=== PATIENT | female | born 1980 | race Caucasian/White ===

== ENCOUNTER → 2018-04-03 16:37 | Outpatient (REF) | payer MEDICAID, SELFPAY ==
--- NOTE | 2018-04-03 14:45 | PAPFT_PTH ---
PATIENT: Chary Merino LOC: [facility]#:[id number] AGE/SX: 44/F ROOM: RE04/03/[address]: Catherine Orozco V : 1980 BED: DIS: SPEC #: [id number] RECD: 04/06/18 12:49 STATUS: LESIA REQ #: [id number] CATHERINE: 04/03/18 14:[address]: Catherine Orozco V DEPT: ON LICENSE OF [facility] Cytology RECD BY: Joana Elizondo Tissues: 1 - CX/ENDOCX FOR PAP SMEARS Procedures: PAP THIN PREP/UVM Screening HPV DNA PROBE Comments: [id number]
== END ==
LOC: NCHCN 16:37
PROVIDERS: PCP Family Medicine; Visit Provider Family Medicine
DX: Z12.4 Encounter for screening for malignant neoplasm of cervix (principal); Z11.51 Encounter for screening for human papillomavirus (HPV)
CPT/HCPCS: 88142; 87624

== ENCOUNTER 2018-04-16 03:55 | Outpatient (CLI) | payer MEDICAID, SELFPAY | END 2018-04-16 04:15 | PROVIDERS: PCP Family Medicine; Visit Provider Family Medicine | DX: R00.2 Palpitations (principal) ==

== ENCOUNTER 2018-05-20 02:13 | Outpatient (CLI) | payer MEDICAID, SELFPAY ==
--- NOTE | 2018-06-29 15:44 | CER_ITS ---
DATE OF DICTATION: June 29, 2018 Zahroof Valves MONITOR REPORT MONITOR IN PLACE: May 20 - June 18, 2018 Baseline rhythm sinus. No atrial fibrillation. Rare ventricular ectopy, less than 1%. Nineteen stable events recorded. These correspond to symptomatic episodes (shortness of breath, ches t pain or pressure, flutter or skipped beats). All events occurred during sinus rhythm 98-154 bpm. Average heart rate 110 bpm. KEN/no D/
== END 2018-05-20 02:33 ==
PROVIDERS: PCP Family Medicine; Visit Provider Family Medicine
DX: R00.2 Palpitations (principal)
CPT/HCPCS: 93270

== ENCOUNTER 2018-06-08 14:57 | Outpatient (REF) | payer MEDICAID, SELFPAY ==
--- NOTE | 2018-06-08 14:25 | ENDO_PTH ---
PATIENT: Chary Merino LOC: [facility] U#:[id number] AGE/SX: 37/F ROOM: RE06/08/[address]: Mickey Verduzco MD : 1980 BED: DIS: 06/08/2018 SPEC #: [id number] RECD: 06/08/18 17:31 STATUS: LESIA RERomario #: [id number] CATHERINE: 06/08/18 14:[address]: Mickey Verduzco DEPT: Surgical Specimen RECD BY: Joana Elizondo ENTERED: 06/08/18 17:32 SP TYPE: Endo OTHR DR: Catherine Orozco V Tissues: 1 - ENDOCERVICAL BX/CURRETTE Procedures: GROSS AND MICRO LEVEL 4 Comments: [id number]
== END 2018-06-08 15:17 ==
LOC: LBN 14:57
PROVIDERS: PCP Family Medicine; Visit Provider Obstetrics & Gynecology
DX: D06.0 Carcinoma in situ of endocervix (principal); N87.1 Moderate cervical dysplasia; R87.611 Atypical squamous cells cannot exclude high grade squamous intraepithelial lesion on cytologic smear of cervix (ASC-H); R87.810 Cervical high risk human papillomavirus (HPV) DNA test positive
CPT/HCPCS: 88305

== ENCOUNTER 2019-04-26 11:40 | Outpatient (CLI) | payer MEDICAID, SELFPAY ==
[2019-04-26 12:09] LABS: HCT 41.4 % (36.0-46.0); Mean Corp. HGB Concentration 33.8 g/dL (32.0-36.0); Mean Corpuscular Hemoglobin 33.5 pg (27.0-33.0); Mean Platelet Volume 8.6 fL (8.0-11.0); Platelet Count 306 x1000/uL (130-400); RBC 4.18 m/cumm (4.00-5.20); RBC Distribution Width 14.5 % (11.7-14.6); White Blood Cell Count 7.27 k/cumm (4.4-10.8)
[2019-04-26 12:50] LABS: ALT 92 U/L (14-59); AST 111 U/L (15-37); Albumin 3.5 g/dL (3.4-5.0); Alkaline Phosphatase 128 U/L (46-116); Anion Gap 13.4 mmol/L (3-11); BUN 5 mg/dL (7-18); Bilirubin, Total 0.3 mg/dL (0.2-1.0); CO2 23.6 mmol/L (21.0-32.0); CREATININE 0.63 mg/dL (0.55-1.02); Calcium 8.5 mg/dL (8.5-10.1); Chloride 103 mmol/L (98-107); Glucose 138 mg/dL (70-100); Potassium 3.6 mmol/L (3.5-5.1); Sodium 140 mmol/L (136-145); Total Protein 7.5 g/dL (6.4-8.2)
== END 2019-04-26 12:00 ==
PROVIDERS: PCP Family Medicine; Visit Provider Obstetrics & Gynecology Gynecology
DX: B19.20 Unspecified viral hepatitis C without hepatic coma (principal)
CPT/HCPCS: 36415; 80053; 85027

== ENCOUNTER 2019-06-16 12:56 | Outpatient (CLI) | payer MEDICAID, SELFPAY | END 2019-06-16 13:16 | PROVIDERS: PCP Family Medicine; Visit Provider Obstetrics & Gynecology Gynecology | DX: Z01.818 Encounter for other preprocedural examination (principal) ==

== ENCOUNTER 2021-09-20 18:07 | Outpatient (REF) | payer MEDICAID, SELFPAY ==
[2021-09-24 14:51] LABS: Chlamydia Result Negative (Negative); GC Result Negative (Negative)
== END 2021-09-20 18:08 | disposition home or self-care (01) ==
LOC: LBN 18:07
PROVIDERS: PCP Family Medicine; Visit Provider Physician Assistant Medical
DX: N89.8 Other specified noninflammatory disorders of vagina (principal)
CPT/HCPCS: 87491; 87591; 87480; 87510; 87660

== ENCOUNTER 2022-09-18 21:42 | Inpatient (IN) | payer MEDICAID, SELFPAY ==
[2022-09-18 21:59] VITALS: BP 164/107; PULSE 81; RESP 16; TEMP 36.4; O2SAT 99
--- NOTE | 2022-09-18 22:00 | DI.CT_ITS ---
Exam(s) CT ABDOMEN PELVIS W EXAM: CT ABDOMEN PELVIS W CLINICAL HISTORY: Incarcerated ventral hernia, pain. TECHNIQUE: Imaging Protocol: Axial computed tomography images with coronal and sagittal reformatted images were created and reviewed CONTRAST MATERIAL: Intravenous: Omnipaque-350 100cc Oral: None COMPARISON: No exams were available for comparison FINDINGS: VISUALIZED LUNG BASES: No nodules nor pleural effusions evident. ABDOMEN: There is a high-grade small bowel obstruction here with small bowel loops dilated to 4.2 cm. Transit ion point is within an anterior abdominal wall midline umbilical hernia which contains entrapped cinthya l loops as well as surrounding fluid. There is small amount of ascites.. There is no free air. LIVER: There are no focal hepatic lesions evident. No dilated intrahepatic ducts. GALLBLADDER/BILIARY: Gallbladder surgically absent. CBD is not dilated. PANCREAS: No evidence of pancreatic mass nor dilatation of the pancreatic duct. SPLEEN: Spleen is not enlarged. No obvious intrasplenic lesions. Splenic and portal veins are paten t. ADRENALS: There are no significant adrenal masses. KIDNEYS:No cysts evident. No solid renal masses. No calculi nor hydronephrosis.. ABDOMINAL AORTA: Abdominal aorta is not enlarged. LYMPH NODES:There is no retroperitoneal nor paraaortic adenopathy. ABDOMINAL WALL: As above. GI: High-grade small-bowel obstruction, as above PELVIS: GI: No evidence of appendicitis.No evidence of sigmoid diverticulitis. LYMPH NODES: There is no intrapelvic nor inguinal adenopathy. REPRODUCTIVE: Uterus and adnexal regions appear unremarkable. URINARY BLADDER: Compressed by dilated bowel loops. Otherwise without obvious abnormality. OSSEOUS: No fractures and no significant osseous lesions. IMPRESSION: 1. There is a high-grade small bowel obstruction which is due to an anterior abdominal wall umbilical level hernia with entrapped small bowel therein and surrounding fluid. There is a small amount of a scites. Surgical consultation recommended. 2. Gallbladder surgically absent. The biliary tree is not dilated. First read by [facility]. RADIATION DOSE DELIVERED: 836.55mGy.cm Total DLP DATA REPOSITORY: All CT scans at this facility are submitted to the National Radiology Data Registry (NRDR) Dose Index Registry (DIR) with the [employer] (A[employer]). RADIATION OPTIMIZATION: All CT scans at this facility use at least one of these dose optimization te chniques: automated exposure control; mA and/or kV adjustment per patient size (includes targeted exa ms where dose is matched to clinical indication); or iterative reconstruction.
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
[2022-09-18 22:30] LABS: Lactate 0.9 mmol/L (0.6-1.4)
[2022-09-18 22:31] LABS: Abs Immature Grans 0.05 10^3/uL (0.0-0.06); Absolute Basophil Count 0.07 10^3/uL (0.0-0.2); Absolute Eosinophil Count 0.08 10^3/uL (0.0-0.7); Absolute Lymphocyte Count 2.32 10^3/uL (1.2-3.4); Absolute Monocyte Count 0.88 10^3/uL (0.1-0.8); Absolute Neutrophil Count 13.19 10^3/uL (1.2-6.7); Basophils % 0.4; Eosinophils % 0.5; HCT 53.8 % (36.0-46.0); HGB 18.2 g/dL (11.2-15.7); Immature Grans % 0.3; MCH 31.5 pg (27.0-33.0); MCHC 33.8 % (32.0-36.0); MCV 93 fL (80-95); MPV 8.3 fL (8.0-11.0); Monocytes % 5.3; Neutrophils % 79.5; Platelet Count 371 10^3/uL (130-400); RBC 5.78 10^6/uL (3.93-5.22); RDW 12.2 % (11.7-14.6); RDW-SD 42.1 fL; WBC 16.59 10^3/uL (4.4-10.8)
[2022-09-18 22:42] LABS: Source Nasal/Nares
[2022-09-18 22:45] LABS: Bilirubin Moderate (Negative); Blood Negative (Negative); Clarity Sl Cloudy (Clear); Glucose 100 mg/dL (Negative); Ketones 40 mg/dL (Negative); Leukocyte Esterase Negative (Negative); Nitrite Negative (Negative)
[2022-09-18 22:51] LABS: Bacteria Negative HPF (Negative); C & S Indicated? No; Casts Negative LPF (Negative); Crystals Negative HPF (Negative); Epithelial Cells Few HPF (Negative); Mucus Negative (Negative); Other Cells Negative (Negative); RBC 0-2 HPF (0-2); WBC 0-2 HPF (0-5)
[2022-09-18 22:52] LABS: ALT 32 U/L (14-59); AST 23 U/L (15-37); Albumin 4.3 g/dL (3.4-5.0); Alkaline Phosphatase 105 U/L (46-116); Anion Gap 9.4 mmol/L (3-11); BUN 6 mg/dL (7-18); Bilirubin, Total 0.6 mg/dL (0.2-1.0); CO2 29.6 mmol/L (21.0-32.0); CREATININE 0.8 mg/dL (0.55-1.02); Calcium 9.9 mg/dL (8.5-10.1); Chloride 100 mmol/L (98-107); Estimated GFR 95.46 (mL/min/1.73m2); Glucose 110 mg/dL (74-106); Lipase 31 U/L (16-77); Potassium 3.4 mmol/L (3.5-5.1); Sodium 139 mmol/L (136-145); Total Protein 8.8 g/dL (6.4-8.2)
[2022-09-18 22:54] LABS: ETHANOL BLOOD < 3.0 mg/dL (<10)
[2022-09-18 22:57] LABS: *AMPHETAMINES SCREEN URINE Negative (Negative); *BARBITURATES SCREEN URINE Negative (Negative); *BENZODIAZEPINES SCREEN URINE Negative (Negative); Cannabinoids THC Positive (Negative); Cocaine Screen,Urine Positive (Negative); METHADONE URINE SCREEN Positive (Negative); OPIATES URINE SCREEN Negative (Negative)
[2022-09-18 22:58] LABS: Tricyclic Antidepressants Negative (Negative)
[2022-09-18] MEDS: Normal Saline 1,000 ML 1000 ML IV (22:59)
[2022-09-18] MEDS: Normal Saline Flush 10 ML SYR IVP (23:12)
[2022-09-18] MEDS: Normal Saline - Diluent 50 ML VIAL IJ (23:15)
[2022-09-18] MEDS: Omnipaque 350 MG/ML 100 ML BTL IJ (23:15)
[2022-09-18 23:16] LABS: COVID-19 PCR Negative (Negative)
--- NOTE | 2022-09-18 23:36 | DI.VRAD_ITS ---
Addendum created by Eduin Maddox MD on 09/18/2022 11:39:13 PM EST: THIS REPORT CONTAINS FINDINGS THAT MAY BE CRITICAL TO PATIENT CARE. The findings were verbally communicated via telephone conference with Jose DAWN at 11:38 PM EST on 09/18/2022. The findings were acknowledged and understood. Initial report created on 09/18/2022 11:35:42 PM EST: PROCEDURE INFORMATION: Exam: CT Abdomen And Pelvis With Contrast Exam date and time: 09/18/2022 11:03 PM Age: 41 years old Clinical indication: Other: Incarcerated ventral hernia pain TECHNIQUE: Imaging protocol: Computed tomography of the abdomen and pelvis with contrast. Radiation optimization: All CT scans at this facility use at least one of these dose optimization techniques: automated exposure control; mA and/or kV adjustment per patient size (includes targeted exams where dose is matched to clinical indication); or iterative reconstruction. Contrast material: OMNIPAQUE 350; Contrast volume: 100 ml; Contrast route: INTRAVENOUS (IV); COMPARISON: US ABDOMEN ULTRASOUND (P) 01/22/2017 2:57 PM FINDINGS: Ventral hernia containing small bowel/fluid with relative narrowing of the exiting bowel. There is proximal small bowel dilatation and gastric/duodenal distention. Prior cholecystectomy. Suspected cirrhosis. The spleen, adrenal glands, kidneys and pancreas are unremarkable. No free air. Minimal pelvic fluid noted. The bladder is decompressed No concerning osseous or soft tissue abnormality No aortic aneurysm or retroperitoneal adenopathy IMPRESSION: High-grade small bowel obstruction secondary to incarcerated small bowel containing hernia Dictated and Authenticated by: Eduin Maddox MD. Ordering:TANA Gutierrez MD
--- NOTE | 2022-09-18 23:41 | ED.PROG_ITS ---
Date of service: 09/18/22 Time of Service: 23:00 Medical Decision Making 2299 -- Please see BETTE Dodd's note for initial presentation, exam and plan. Case endorsed to f/u on CT with likely diagnosis of incarcerated hernia. Pt assessed by me at bedside. 41 year old F w/ a h/o opiate use in remission on methadone and h/o cholecystectomy presents for vomiting and abdominal pain for the past few days. Last BM today. Pt has a tender indurated mass to the right of her umbilicus, 7x7cm in size without cellulitis. Remainder of abdomen soft. She appears uncomfortable. She last took a dose of methadone yesterday and has not had her dose today. As we cannot confirm that she is taking 120mg at this time, will give a dose of dilaudid IV for pain control. Vrad called to state pt has SBO and umbilical hernia. Case d/w and imaging reviewed with Dr. Murillo -- pt has an incarcerated hernia. Would like NG tube, 2g Ancef IV and will call in OR team. Pt is agreeable with plan. 0030 -- Multiple attempts made by nursing staff to place NG tube in ED but unsuccessful. It was noted that pt had resistance when attempting to place NGT and had epistaxis and discomfort and declined any further attempts. Dr. Murillo made aware. Medical Records Medical records reviewed: Yes I reviewed the patient's medical records. Imaging Data Radiologic Study: Radiologist's impression: CT Abdomen And Pelvis With Contrast Exam date and time: 09/18/2022 11:03 PM Age: 41 years old Clinical indication: Other: Incarcerated ventral hernia pain TECHNIQUE: Imaging protocol: Computed tomography of the abdomen and pelvis with contrast. Radiation optimization: All CT scans at this facility use at least one of these dose optimization techniques: automated exposure control; mA and/or kV adjustment per patient size (includes targeted exams where dose is matched to clinical indication); or iterative reconstruction. Contrast material: OMNIPAQUE 350; Contrast volume: 100 ml; Contrast route: INTRAVENOUS (IV);? COMPARISON: US ABDOMEN ULTRASOUND (P) 01/22/2017 2:57 PM FINDINGS: Ventral hernia containing small bowel/fluid with relative narrowing of the exiting bowel. There is proximal small bowel dilatation and gastric/duodenal distention. Prior cholecystectomy.? Suspected cirrhosis. The spleen, adrenal glands, kidneys and pancreas are unremarkable. No free air. Minimal pelvic fluid noted. The bladder is decompressed No concerning osseous or soft tissue abnormality No aortic aneurysm or retroperitoneal adenopathy IMPRESSION: High-grade small bowel obstruction secondary to incarcerated small bowel containing hernia Lab Data Lab results reviewed: Yes I reviewed the patient's lab results. Labs: Laboratory Tests Range/Units 09/18/22 09/18/22 09/18/22 22:23 22:23 22:23 WBC (4.4-10.8) 10^3/uL 16.59 H RBC (3.93-5.22) 10^6/uL 5.78 H Hgb (11.2-15.7) g/dL 18.2 H Hct (36.0-46.0) % 53.8 H MCV (80-95) fL 93 MCH (27.0-33.0) pg 31.5 MCHC (32.0-36.0) % 33.8 RDW (11.7-14.6) % 12.2 Plt Count (130-400) 10^3/uL 371 MPV (8.0-11.0) fL 8.3 Immature Gran % 0.3 Neutrophils % 79.5 Lymphocytes % 14.0 Monocytes % 5.3 Eosinophils % 0.5 Basophils % 0.4 Nucleated RBC % (0.0-0.3) % 0.0 Absolute Neutrophils (1.2-6.7) 10^3/uL 13.19 H Absolute Lymphocytes (1.2-3.4) 10^3/uL 2.32 Absolute Monocytes (0.1-0.8) 10^3/uL 0.88 H Absolute Eosinophils (0.0-0.7) 10^3/uL 0.08 Absolute Basophils (0.0-0.2) 10^3/uL 0.07 VBG Lactate (0.6-1.4) mmol/L 0.9 Sodium (136-145) mmol/L 139 Potassium (3.5-5.1) mmol/L 3.4 L Chloride (98-107) mmol/L 100 Carbon Dioxide (21.0-32.0) mmol/L 29.6 Anion Gap (3-11) mmol/L 9.4 BUN (7-18) mg/dL 6 L Creatinine (0.55-1.02) mg/dL 0.8 Est GFR (CKD-EPI 2020) (mL/min/1.73m2) 95.46 Glucose (74-106) mg/dL 110 H Calcium (8.5-10.1) mg/dL 9.9 Total Bilirubin (0.2-1.0) mg/dL 0.6 AST (15-37) U/L 23 ALT (14-59) U/L 32 Alkaline Phosphatase (46-116) U/L 105 Total Protein (6.4-8.2) g/dL 8.8 H Albumin (3.4-5.0) g/dL 4.3 Lipase (16-77) U/L 31 Urine Color (Yellow) Urine Clarity (Clear) Urine pH (5-8) Ur Specific Leeper (1.005-1.025) Urine Protein (Negative) mg/dL Urine Ketones (Negative) mg/dL Urine Blood (Negative) Urine Nitrite (Negative) Urine Bilirubin (Negative) Urine Urobilinogen (Up TO 0.2) EU/dL Ur Leukocyte Esterase (Negative) Urine RBC (0-2) HPF Urine WBC (0-5) HPF Ur Epithelial Cells (Negative) HPF Urine Crystals (Negative) HPF Urine Bacteria (Negative) HPF Urine Casts (Negative) LPF Urine Mucus (Negative) Urine Other (Negative) Ur Culture Indicated? Urine Glucose (Negative) mg/dL Urine Opiates Screen (Negative) Urine Methadone Screen (Negative) Ur Barbiturates Screen (Negative) Ur Tricyclics Screen (Negative) Ur Amphetamines Screen (Negative) U Benzodiazepines Scrn (Negative) Urine Cocaine Screen (Negative) Ur THC Screen (Negative) Ethyl Alcohol (<10) mg/dL COVID-19 Source SARS-CoV-2 (PCR) (Negative) Range/Units 09/18/22 09/18/22 09/18/22 22:23 22:30 22:30 WBC (4.4-10.8) 10^3/uL RBC (3.93-5.22) 10^6/uL Hgb (11.2-15.7) g/dL Hct (36.0-46.0) % MCV (80-95) fL MCH (27.0-33.0) pg MCHC (32.0-36.0) % RDW (11.7-14.6) % Plt Count (130-400) 10^3/uL MPV (8.0-11.0) fL Immature Gran % Neutrophils % Lymphocytes % Monocytes % Eosinophils % Basophils % Nucleated RBC % (0.0-0.3) % Absolute Neutrophils (1.2-6.7) 10^3/uL Absolute Lymphocytes (1.2-3.4) 10^3/uL Absolute Monocytes (0.1-0.8) 10^3/uL Absolute Eosinophils (0.0-0.7) 10^3/uL Absolute Basophils (0.0-0.2) 10^3/uL VBG Lactate (0.6-1.4) mmol/L Sodium (136-145) mmol/L Potassium (3.5-5.1) mmol/L Chloride (98-107) mmol/L Carbon Dioxide (21.0-32.0) mmol/L Anion Gap (3-11) mmol/L BUN (7-18) mg/dL Creatinine (0.55-1.02) mg/dL Est GFR (CKD-EPI 2020) (mL/min/1.73m2) Glucose (74-106) mg/dL Calcium (8.5-10.1) mg/dL Total Bilirubin (0.2-1.0) mg/dL AST (15-37) U/L ALT (14-59) U/L Alkaline Phosphatase (46-116) U/L Total Protein (6.4-8.2) g/dL Albumin (3.4-5.0) g/dL Lipase (16-77) U/L Urine Color (Yellow) Yellow Urine Clarity (Clear) Sl Cloudy Urine pH (5-8) 6.0 Ur Specific Leeper (1.005-1.025) 1.020 Urine Protein (Negative) mg/dL 30 H Urine Ketones (Negative) mg/dL 40 H Urine Blood (Negative) Negative Urine Nitrite (Negative) Negative Urine Bilirubin (Negative) Moderate H Urine Urobilinogen (Up TO 0.2) EU/dL 1.0 H Ur Leukocyte Esterase (Negative) Negative Urine RBC (0-2) HPF 0-2 Urine WBC (0-5) HPF 0-2 Ur Epithelial Cells (Negative) HPF Few Urine Crystals (Negative) HPF Negative Urine Bacteria (Negative) HPF Negative Urine Casts (Negative) LPF Negative Urine Mucus (Negative) Negative Urine Other (Negative) Negative Ur Culture Indicated? No Urine Glucose (Negative) mg/dL 100 Urine Opiates Screen (Negative) Urine Methadone Screen (Negative) Ur Barbiturates Screen (Negative) Ur Tricyclics Screen (Negative) Ur Amphetamines Screen (Negative) U Benzodiazepines Scrn (Negative) Urine Cocaine Screen (Negative) Ur THC Screen (Negative) Ethyl Alcohol (<10) mg/dL < 3.0 COVID-19 Source Nasal/Nares SARS-CoV-2 (PCR) (Negative) Negative Range/Units 09/18/22 22:30 WBC (4.4-10.8) 10^3/uL RBC (3.93-5.22) 10^6/uL Hgb (11.2-15.7) g/dL Hct (36.0-46.0) % MCV (80-95) fL MCH (27.0-33.0) pg MCHC (32.0-36.0) % RDW (11.7-14.6) % Plt Count (130-400) 10^3/uL MPV (8.0-11.0) fL Immature Gran % Neutrophils % Lymphocytes % Monocytes % Eosinophils % Basophils % Nucleated RBC % (0.0-0.3) % Absolute Neutrophils (1.2-6.7) 10^3/uL Absolute Lymphocytes (1.2-3.4) 10^3/uL Absolute Monocytes (0.1-0.8) 10^3/uL Absolute Eosinophils (0.0-0.7) 10^3/uL Absolute Basophils (0.0-0.2) 10^3/uL VBG Lactate (0.6-1.4) mmol/L Sodium (136-145) mmol/L Potassium (3.5-5.1) mmol/L Chloride (98-107) mmol/L Carbon Dioxide (21.0-32.0) mmol/L Anion Gap (3-11) mmol/L BUN (7-18) mg/dL Creatinine (0.55-1.02) mg/dL Est GFR (CKD-EPI 2020) (mL/min/1.73m2) Glucose (74-106) mg/dL Calcium (8.5-10.1) mg/dL Total Bilirubin (0.2-1.0) mg/dL AST (15-37) U/L ALT (14-59) U/L Alkaline Phosphatase (46-116) U/L Total Protein (6.4-8.2) g/dL Albumin (3.4-5.0) g/dL Lipase (16-77) U/L Urine Color (Yellow) Urine Clarity (Clear) Urine pH (5-8) Ur Specific Leeper (1.005-1.025) Urine Protein (Negative) mg/dL Urine Ketones (Negative) mg/dL Urine Blood (Negative) Urine Nitrite (Negative) Urine Bilirubin (Negative) Urine Urobilinogen (Up TO 0.2) EU/dL Ur Leukocyte Esterase (Negative) Urine RBC (0-2) HPF Urine WBC (0-5) HPF Ur Epithelial Cells (Negative) HPF Urine Crystals (Negative) HPF Urine Bacteria (Negative) HPF Urine Casts (Negative) LPF Urine Mucus (Negative) Urine Other (Negative) Ur Culture Indicated? Urine Glucose (Negative) mg/dL Urine Opiates Screen (Negative) Negative Urine Methadone Screen (Negative) Positive A Ur Barbiturates Screen (Negative) Negative Ur Tricyclics Screen (Negative) Negative Ur Amphetamines Screen (Negative) Negative U Benzodiazepines Scrn (Negative) Negative Urine Cocaine Screen (Negative) Positive A Ur THC Screen (Negative) Positive A Ethyl Alcohol (<10) mg/dL COVID-19 Source SARS-CoV-2 (PCR) (Negative) Sign Out Sign Out Data: Sign Out Comment: Examination consistent with incarcerated hernia. Patient with leukocytosis although her lactate is normal. Awaiting CT imaging and likely need for surgical consultation. Currently lying in Trendelenburg with ice pack on hernia. Last updated by Matt Dodd PA at 09/18/22 23:08 Discharge Plan Disposition Patient Disposition: Admit to [facility] Condition: Stable Discharge Details Clinical Impression: Incarcerated umbilical hernia, Small bowel obstruction Attending Provider: Matthew Murillo Primary Care Provider: Catherine Orozco V ED Provider: Aixa Garcia
[2022-09-19] VITALS (17 sets, daily range): BP systolic 117–156; BP diastolic 67–108; PULSE 60–97; RESP 14–19; TEMP 36.6–37.2; O2SAT 95–100; BMI 30.9
[2022-09-19] MEDS: HYDROmorphone 2 MG/ML SYR 1 MG IVP (00:18)
[2022-09-19] MEDS: ceFAZolin 2,000 MG in Normal Saline 100 ML 200 MG IVPB (00:21)
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
--- NOTE | 2022-09-19 00:46 | NUR.NOTE ---
Addendum entered by Uzair Martinez RN 09/19/22 01:14: Pt transported to OR with OR nurse. Addendum entered by Uzair Martinez RN 09/19/22 00:49: Surgeon at bedside to speak with pt. Original Note: Nursing Note: NG tube placement unsuccessful, 3 failed attemps, ER attending and surgeon aware.
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
[2022-09-19] MEDS: Lactated Ringers 1,000 ML 30 ML IV (01:09)
[2022-09-19] MEDS: Bupivacaine 0.5% Pres-Free W/EPI 30 ML VIAL (02:29)
[2022-09-19] MEDS: Bupivacaine LIPOSOME/PF 133 MG/10 ML VIAL IJ (02:29)
--- NOTE | 2022-09-19 02:50 | W.PM.OP ---
Date of service: 09/19/22 Time of Service: 02:51 Operative Note Operative Note DATE OF PROCEDURE: 09/19/22 PRE-OP DIAGNOSIS: Incarcerated incisional hernia with small bowel obstruction POST-OP DIAGNOSIS: same PROCEDURE: Exploratory laparotomy, reduction of hernia, repair of incisional hernia with recto rectus mesh SURGEON: Matthew Murillo SEAL DELIVERY VEHICLE OFFICER: Anastasia Dempsey ANESTHESIA TYPE: Local By Surgeon and General LMA/ETT Refer to Anesthesia Record ESTIMATED BLOOD LOSS: 50 PATHOLOGY: none sent COMPLICATIONS: None Patient was transported to: PACU Patient's condition: stable Implants: Bard polypropylene mesh Indications: Chary is a 41-year-old woman with a painful bulge adjacent to her umbilicus. She underwent CAT scan of the abdomen and pelvis to confirm the diagnosis of a hernia involving small bowel. Multiple attempts were made in the emergency department to reduce it, as well unsuccessful. Findings: Likely incisional hernia at the umbilicus, with incarcerated small bowel and acute small bowel obstruction. Procedure Description: After the induction of general endotracheal anesthesia, I prepped and draped the anterior abdominal wall in usual fashion. I made a longitudinal incision around the area of the umbilicus extending above and below the level of the hernia defect. Next, I dissected down to the midline fascia. I then dissected the surrounding fat off of the hernia sac, isolating it from the surrounding tissues. Next, several centimeters above the hernia, I incised the midline fascia. I entered the peritoneal cavity, and continued my dissection down towards the origin of the hernia defect. With careful dissection, I isolated the fascial defect, and opened it. There was some serous fluid within the hernia sac, as well as a loop of small intestine. I gently liberated it. The bowel wall was mildly thickened, but it had good blood flow, and there was normal peristalsis across the neck of the incarcerated small bowel. Next, I continued my dissection downward back into normal fascia. Once this was completed, I completely excised the hernia sac. I then opened the right and left rectus sheaths, and dissected the right left rectus muscles off of the posterior fascial elements. Great care was taken to preserve the oncology consultant vessels. Once the rectus muscles were mobilized, I examined the herniated small bowel again. The tissue is healthy appearing. The small intestine back into the peritoneal cavity, and took great care to ensure that everything was arranged in a normal anatomic fashion. Next, I closed the posterior fascial sheath with a running 2-0 PDS suture. Next, I trimmed a large polypropylene mesh to overlay on the primary posterior vaginal closure. I fixed it in place with interrupted Prolene stitches. I then replaced the rectus muscles to the normal position, and then closed the anterior rectus sheath over this. I then irrigated the surgical field. It was hemostatic. I approximated the subcutaneous fat with interrupted Vicryl stitches, and the skin was closed with surgical stapler. A curtis negative pressure dressing was applied, and the patient was allowed awaken from anesthesia and transferred to the recovery unit.
[2022-09-19] MEDS: fentaNYL 100 MCG/2 ML VIAL IVP ×2 (03:07→03:11)
--- NOTE | 2022-09-19 03:30 | W.ANESPOSTOP ---
Postoperative Evaluation Date, Time and Location Date Performed: 09/19/22 Time Performed: 03:31 Patient Location: PACU Vital Signs Most Recent Imported Vital Signs: Most Recent Vital Signs Temp Pulse Resp BP Pulse Ox 37.2 C 69 18 150/89 H 96 09/19/22 03:26 09/19/22 03:26 09/19/22 03:26 09/19/22 03:26 09/19/22 03:26 Pain Score Most Recent Pain Score: Most Recent Pain Score Pain Level 4 09/19/22 03:26 Assessment Mental Status: Awake (Alert & Oriented to Patient Baseline) Airway and Respiratory Function: Patent airway with normal (patient baseline) respiratory exam Cardiovascular Function: Hemodynamically Stable Hydration Status: Adequately Hydrated Nausea & Vomiting: No Nausea or Vomiting Pain: Pain is Moderate or Severe Postoperative Pain Management: Ongoing pain, patient will be managed as an inpatient Peripheral Nerve Block: Patient did not receive a nerve block
[2022-09-19] MEDS: HYDROmorphone 2 MG/ML SYR IVP (04:00)
[2022-09-19] MEDS: Ketorolac 30 MG/ML VIAL IVP ×2 (04:01→13:05)
[2022-09-19] MEDS: Lactated Ringers 1,000 ML 75 ML IV (04:01)
[2022-09-19] MEDS: Acetaminophen 500 MG TAB 1000 MG PO ×2 (06:09→13:04)
[2022-09-19 07:01] LABS: HCT 45.1 % (36.0-46.0); HGB 15.3 g/dL (11.2-15.7); MCH 31.8 pg (27.0-33.0); MCHC 33.9 % (32.0-36.0); MCV 94 fL (80-95); MPV 8.7 fL (8.0-11.0); Platelet Count 284 10^3/uL (130-400); RBC 4.81 10^6/uL (3.93-5.22); RDW 12.2 % (11.7-14.6); RDW-SD 42.6 fL; WBC 14.39 10^3/uL (4.4-10.8)
[2022-09-19] MEDS: Methadone Liquid 10 MG/ML 120 MG PO (07:52)
[2022-09-19] MEDS: Enoxaparin 40 MG/0.4 ML SYR SC (07:53)
[2022-09-19] MEDS: Psyllium PKT 1 EACH PO (08:02)
[2022-09-19] MEDS: Gabapentin 300 MG CAP PO ×2 (08:05→13:04)
[2022-09-19] MEDS: Famotidine 20 MG TAB PO (11:35)
[2022-09-19] MEDS: HYDROmorphone 2 MG/ML SYR 0.5 MG IVP ×2 (11:35→17:03)
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
--- NOTE | 2022-09-19 12:47 | W.PM.DSUDISC ---
Date of service: 09/19/22 Time of Service: 12:47 Discharge Plan Disposition Condition: Stable Condition: Good Discharge Details Reason For Visit: Incarcerated Incisional Hernia w/Small Bowel Obstr Admit Date/Time: 09/19/22 02:52 Admit Provider: Matthew Murillo Attending Provider: Matthew Murillo Primary Care Provider: Catherine Orzoco V Hospital Course Hospital Course: Chary is a 41-year-old woman who presented to the emergency department with an incarcerated umbilical port site incisional hernia. This was causing an acute small bowel obstruction. She was brought to the operating room emergently, underwent reduction of the hernia, and repair of the hernia defect with retrorectus mesh Home Meds and New Rx's Prescriptions: New hydromorphone [Dilaudid] 2 mg tablet 2 mg PO Q6H PRN (Reason: pain) Qty: 12 0RF Rx Instructions: Take 1 tablet by mouth up to every 6 hours if needed for severe pain. Do not drive while taking this medication. gabapentin 300 mg capsule 300 mg PO TID Qty: 15 0RF Rx Instructions: Take 1 tablet by mouth every 8 hours for 5 days straight. Continued methadone 10 mg tablet 120 mg PO DAILY Patient Comments: ended up throwing it up DS: Diagnosis Discharge Diagnosis (1) Incarcerated umbilical hernia: Status: Acute Asessment and Plan: Follow-up for outpatient visit
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
--- NOTE | 2022-09-19 16:50 | PDOC.CMDIS ---
- If Service Date Differs Date of service: 09/19/22 Time of Service: 16:50 LACE Index Scoring Tool - Questions: Length of Stay (in days): 1 Acuity (Admit via E.D.?): Yes E.D. Visits: 1 - Answers: Total Score: 5 Risk of Readmission: Low Risk Care Management Discharge Reason for Hospitalization: Incarcerated umbilical hernia Discharge Plan: Chary will return home today with no new services. She will be driven home via private vehicle. She will follow up with surgical services and her discharge plan of care. Patient/Family Education Needs: Review discharge instructions and limitations, discussion of self care needs including ask me three.
[2022-09-19] MEDS: Normal Saline Flush 10 ML SYR IVP (17:04)
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
== END 2022-09-19 18:42 | disposition home or self-care (01) | DRG 354 ==
LOC: ER 09-19 00:47 → SUR 09-19 01:06 → ER 09-19 03:51 → SUR 09-19 03:51 → ER 09-19 03:51 → SUR 09-19 03:51 → MS 09-19 03:53
PROVIDERS: Physician Assistant; Admitting Provider Surgery; Emergency Provider Physician Assistant; PCP Family Medicine; Visit Provider Surgery
PROC: 0WUF0JZ Supplement Abdominal Wall with Synthetic Substitute, Open Approach (ICD-10-PCS; CPT 49594; principal; 2022-09-19 00:40)
DX: K43.0 Incisional hernia with obstruction, without gangrene (principal); F11.20 Opioid dependence, uncomplicated; F43.10 Post-traumatic stress disorder, unspecified; F32.A Depression, unspecified; K21.9 Gastro-esophageal reflux disease without esophagitis; E66.9 Obesity, unspecified; Z68.30 Body mass index [BMI] 30.0-30.9, adult; B18.2 Chronic viral hepatitis C; Z91.419 Personal history of unspecified adult abuse; Z62.810 Personal history of physical and sexual abuse in childhood; F41.9 Anxiety disorder, unspecified
CPT/HCPCS: 49594; 36415; 80053; 80307; 81025; 83690; 85027; 87635; 96361; 96365; 96375; 99285; J1650; 74177; 80320; 81003; 81015; 83605; 85025; C1781; J0690; J1100; J1170; J1885; J2405; J2704; J3010; J3490

== ENCOUNTER 2022-09-28 15:14 | Emergency (ER) | payer MEDICAID, SELFPAY ==
[2022-09-28 15:19] VITALS: BP 147/96; PULSE 93; RESP 18; TEMP 36.4; O2SAT 98
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
[2022-09-28] MEDS: Bacitracin 1 PACKET (16:15)
[2022-09-28 16:18] VITALS: BP 135/90; PULSE 102; O2SAT 95
== END 2022-09-28 16:31 | disposition home or self-care (01) ==
PROVIDERS: Emergency Provider Physician Assistant; PCP Family Medicine
DX: Z48.815 Encounter for surgical aftercare following surgery on the digestive system (principal); R58 Hemorrhage, not elsewhere classified
CPT/HCPCS: 99282

== ENCOUNTER 2022-12-29 20:31 | Emergency (ER) | payer MEDICAID, SELFPAY ==
[2022-12-29 20:37] VITALS: BP 143/91; PULSE 110; RESP 18; TEMP 36.6; O2SAT 99
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
[2022-12-29] MEDS: Cephalexin 500 MG CAP, 4 CAPS/BTL PO (21:29)
== END 2022-12-29 21:57 | disposition home or self-care (01) ==
PROVIDERS: Emergency Provider Student in an Organized Health Care Education/Training Program; PCP Family Medicine
DX: S61.411A Laceration without foreign body of right hand, initial encounter (principal); W25.XXXA Contact with sharp glass, initial encounter
CPT/HCPCS: 12002; 90471; 99284; 99283

== ENCOUNTER 2023-01-29 14:21 | Outpatient (CLI) | payer MEDICAID, SELFPAY ==
--- NOTE | 2023-01-29 12:15 | DI.US_ITS ---
Exam(s) US PELVIS TRANSVAGINAL EXAM: US PELVIS TRANSVAGINAL CLINICAL HISTORY: vaginal bleeding N93.9 ABNL VAGINAL BLEEDING. TECHNIQUE: Transabdominal and transvaginal pelvic ultrasound was performed using standard protocol. COMPARISON: No exams were available for comparison FINDINGS: UTERUS: Position: Anteverted. Size: 7.5 long by 3.7 AP by 4.4 transverse cm Endometrium: 0.2 cm. Normal for patient's menstrual status. There is mobile debris seen within the en dometrial canal which may reflect blood products. Myometrium: Unremarkable. Cervix: Unremarkable. OVARIES: Right: 3.1 x 1.4 x 2 cm Cyst or mass: No suspicious cystic or solid masses. Left: 2.3 x 1.6 x 2.9 cm Cyst or mass: No suspicious cystic or solid masses. DOPPLER: Color: Symmetric and uniform flow to both ovaries. CUL-DE-SAC: Free fluid: None. Other: None. IMPRESSION: 1. Normal-appearing uterus with endometrial stripe within normal limits. 2. Debris seen within the endometrial canal likely reflecting blood products. 3. Unremarkable bilateral ovaries. DATA REPOSITORY:
== END 2023-01-29 14:41 ==
LOC: DI 14:21
PROVIDERS: PCP Family Medicine; Visit Provider Physician Assistant
DX: N93.9 Abnormal uterine and vaginal bleeding, unspecified (principal)
CPT/HCPCS: 76830; 76856

== ENCOUNTER 2023-02-27 17:39 | Outpatient (REF) | payer MEDICAID, SELFPAY ==
--- NOTE | 2023-02-27 16:30 | PAPFT_PTH ---
PATIENT: Chary Merino LOC: [facility] U#:[id number] AGE/SX: 42/F ROOM: RE02/27/[address]: Amanda Crandall MD : 1980 BED: DIS: 02/27/2023 SPEC #: [id number] RECD: 02/27/23 17:57 STATUS: LESIA RERomario #: [id number] CATHERINE: 02/27/23 16:[address]: Amanda Crandall DEPT: [facility] Cytology RECD BY: Joana Elizondo ENTERED: 02/27/23 17:57 SP TYPE: PAPFT OTHR DR: Catherine Orozco V Tissues: 1 - CX/ENDOCX FOR PAP SMEARS Procedures: PAP THIN PREP/UVM Screening HPV DNA PROBE Comments: [id number]
[2023-02-28 13:35] LABS: Chlamydia Result Negative (Negative); GC Result Negative (Negative)
== END 2023-02-27 17:40 | disposition home or self-care (01) ==
LOC: LBN 17:39
PROVIDERS: PCP Family Medicine; Visit Provider Obstetrics & Gynecology
DX: Z11.51 Encounter for screening for human papillomavirus (HPV) (principal)
CPT/HCPCS: 87491; 87591; 88142; 87624

== ENCOUNTER 2023-03-30 10:50 | Emergency (ER) | payer MEDICAID, SELFPAY ==
[2023-03-30 10:56] VITALS: BP 122/76; PULSE 87; RESP 18; TEMP 36.9; O2SAT 100
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
[2023-03-30 12:33] VITALS: BP 117/74; PULSE 66; RESP 14; TEMP 36.4; O2SAT 98
--- NOTE | 2023-03-30 12:33 | NUR.NOTE ---
Nursing Note: Per MD order, LT wrist wound cleansed with impregnated sponge and rinsed w/ NS. Bacitracin applied to wound and covered with a large band-aid. Pt discharged w/ wound care supplies.
== END 2023-03-30 12:34 | disposition home or self-care (01) ==
PROVIDERS: Emergency Provider Physician Assistant; PCP Family Medicine
DX: L03.114 Cellulitis of left upper limb (principal); F17.210 Nicotine dependence, cigarettes, uncomplicated
CPT/HCPCS: 87077; 99283; 87070; 87205; 99282

== ENCOUNTER 2023-04-19 17:18 | Emergency (ER) | payer MEDICAID, SELFPAY ==
[2023-04-19 17:19] VITALS: BP 129/102; PULSE 105; RESP 18; TEMP 37.5; O2SAT 95
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
[2023-04-19] MEDS: Amoxicillin 875/Clav. 125 TAB PO (17:51)
[2023-04-19] MEDS: Sulfameth/Trimeth DS TAB 1 TAB PO (17:51)
== END 2023-04-19 18:21 | disposition home or self-care (01) ==
PROVIDERS: Emergency Provider Emergency Medicine; PCP Family Medicine
DX: L53.9 Erythematous condition, unspecified (principal); F19.90 Other psychoactive substance use, unspecified, uncomplicated; F17.210 Nicotine dependence, cigarettes, uncomplicated; Z59.00 Homelessness unspecified
CPT/HCPCS: 99282

== ENCOUNTER 2023-04-20 01:09 | Emergency (ER) | payer MEDICAID, SELFPAY ==
[2023-04-20 01:23] VITALS: BP 139/88; PULSE 93; RESP 16; TEMP 36.9; O2SAT 95
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
== END 2023-04-20 02:13 | disposition home or self-care (01) ==
PROVIDERS: Emergency Provider Emergency Medicine; PCP Family Medicine
DX: L98.499 Non-pressure chronic ulcer of skin of other sites with unspecified severity (principal); L03.114 Cellulitis of left upper limb; F19.10 Other psychoactive substance abuse, uncomplicated; F17.210 Nicotine dependence, cigarettes, uncomplicated; Z59.02 Unsheltered homelessness
CPT/HCPCS: 99282

== ENCOUNTER 2024-05-01 15:16 | Emergency (ER) | payer MEDICAID, SELFPAY ==
[2024-05-01 15:23] VITALS: BP 127/94; PULSE 50; RESP 16; TEMP 36.5; O2SAT 99
[2024-05-01 15:30] VITALS: BP 127/94; PULSE 50; RESP 16; TEMP 36.5; O2SAT 99
--- NOTE | 2024-05-01 15:30 | RT.EKG_ITS ---
APPROVED REPORT Exam: Resting ECG Reason for Exam: bradycardia Patient Location: E HR:54 bpm ECG Measurements Heart Rate 54 AXIS IL 156 P 30 QRSd 104 QRS 4 QT 496 T 35 QTc 470 Conclusion Bradycardia with irregular rate...V-rate 43- 70, mean < 60 Probable left ventricular hypertrophy...multiple LVH criteria sinus bradycardia, normal axis, normal intervals, non ischemic
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
[2024-05-01 16:55] VITALS: PULSE 52; RESP 16; TEMP 36.4; O2SAT 98
== END 2024-05-01 17:16 | disposition home or self-care (01) ==
PROVIDERS: Emergency Provider Emergency Medicine; PCP Family Medicine
DX: Z01.89 Encounter for other specified special examinations (principal)
CPT/HCPCS: 36416; 82962; 93005; 99285; 93010; 99283

== ENCOUNTER 2024-11-27 09:22 | Emergency (ER) | payer MEDICAID, SELFPAY ==
[2024-11-27 09:37] VITALS: BP 105/70; PULSE 77; RESP 16; TEMP 36.9; O2SAT 95
[2024-11-27 09:40] VITALS: BP 105/70; PULSE 77; RESP 16; TEMP 36.9; O2SAT 95
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
[2024-11-27] MEDS: Sulfameth/Trimeth DS, 2 TABS/BTL 1 TAB PO (10:08)
[2024-11-27] MEDS: Sulfameth/Trimeth DS TAB 1 TAB PO (10:08)
== END 2024-11-27 10:17 | disposition home or self-care (01) ==
PROVIDERS: Emergency Provider Registered Nurse Emergency; PCP Family Medicine
DX: L03.113 Cellulitis of right upper limb (principal); F19.10 Other psychoactive substance abuse, uncomplicated; F17.210 Nicotine dependence, cigarettes, uncomplicated; Z59.00 Homelessness unspecified
CPT/HCPCS: 99283

== ENCOUNTER 2025-02-14 15:07 | Emergency (ER) | payer MEDICAID, SELFPAY ==
[2025-02-14 15:10] VITALS: BP 151/109; PULSE 125; RESP 16; TEMP 36.7; O2SAT 96
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
== END 2025-02-14 15:41 | disposition home or self-care (01) ==
PROVIDERS: Emergency Provider Emergency Medicine; PCP Family Medicine
DX: R23.4 Changes in skin texture (principal)
CPT/HCPCS: 99283

== ENCOUNTER 2025-03-19 21:00 | Emergency (ER) | payer MEDICAID, SELFPAY ==
[2025-03-19] VITALS (28 sets, daily range): BP systolic 110–138; BP diastolic 61–87; PULSE 71–102; RESP 15–35; TEMP 36.6; O2SAT 94–100
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
[2025-03-19] MEDS: Ondansetron 4 MG/2 ML VIAL IVP (21:27)
[2025-03-19] MEDS: Normal Saline 500 ML IV ×2 (21:27→22:04)
[2025-03-19 21:28] LABS: Abs Immature Grans 0.01 10^3/uL (0.0-0.06); BE (Venous) 2 mmol/L (-2-3); HCO3 (Venous) 28 mmol/L (23-28); HCT 39.7 % (36.0-46.0); HGB 13.2 g/dL (11.2-15.7); Immature Grans % 0.1 %; MCH 30.8 pg (27.0-33.0); MCHC 33.2 % (32.0-36.0); MCV 93 fL (80-95); MPV 8.1 fL (8.0-11.0); O2 Sat (Venous) 73 %; Platelet Count 263 10^3/uL (130-400); RBC 4.28 10^6/uL (3.93-5.22); RDW 12.9 % (11.7-14.6); RDW-SD 43.9 fL; TCO2 (Venous) 25 mmol/L (24-29); WBC 7.19 10^3/uL (4.4-10.8); pCO2 (Venous) 48 mmHg (41-51); pO2 (Venous) 38 mmHg
--- NOTE | 2025-03-19 21:30 | RT.EKG_ITS ---
APPROVED REPORT Exam: Resting ECG Reason for Exam: [facility] Patient Location: E HR:79 bpm ECG Measurements Heart Rate 79 AXIS [place] 154 P 62 QRSd 106 QRS 10 QT 434 T 43 QTc 498 Conclusion Sinus rhythm...normal P axis, V-rate 60- 99 No Occlusion ME
[2025-03-19 21:40] LABS: Anion Gap 7.9 mmol/L (3-11); BUN 10 mg/dL (7-18); CO2 31.1 mmol/L (21.0-32.0); Calcium 8.6 mg/dL (8.5-10.1); Chloride 105 mmol/L (98-107); Estimated GFR 81.35 (mL/min/1.73m2); Glucose 122 mg/dL (74-106); Sodium 144 mmol/L (136-145)
[2025-03-19 21:42] LABS: Potassium 2.8 mmol/L (3.5-5.1)
[2025-03-19 21:46] LABS: HCG Qual (Serum) Negative
[2025-03-19] MEDS: POTASSIUM CHLORIDE 10 MEQ/100 ML BAG 100 MEQ IV_INF (21:56)
[2025-03-19] MEDS: Potassium Chloride 20 MEQ TABCR 40 MEQ PO (23:06)
[2025-03-20] VITALS (22 sets, daily range): BP systolic 98–121; BP diastolic 47–73; PULSE 74–87; RESP 12–35; O2SAT 92–98
--- NOTE | 2025-03-20 01:23 | W.EDPROG ---
Date of service: 03/20/25 Time of Service: 01:24 Medical Decision Making Patient was signed out to me for secondary assessment. Patient has been observed for over 4 hours, no return of hypoxemia or respiratory depression. Patient was resting comfortably. I did wake her up. No signs of acute trauma. She has been given IV and p.o. potassium. Blood pressure stable. She was hungry and was given crackers, peanut butter and juice. She states that she does have resources that she is signed up for, but still remains homeless. She remains hemodynamically stable with no evidence to suggest continued prolonged effect of opiates. She will be given a harm reduction back for home. Patient will be discharged when she has been able to eat and restfully here in the ED. I have extensively reviewed the treatment plan and discharge instructions with the patient. I have addressed all patient concerns at this time. The patient was made aware of what symptoms to monitor for that would warrant a return to the emergency department. Discussed the plan with the patient, they demonstrate verbal understanding and agreement with our assessment and plan at this time. The documentation in this chart was dictated using [email or web address] dictation software. Please excuse any dictation errors. Discharge Plan Disposition Patient Disposition: Home Condition: Improving Discharge Details Clinical Impression: Opiate overdose, Acute hypoxic respiratory failure, Acute hypokalemia Primary Care Provider: Catherine Orozco V ED Provider: Audi Salazar Home Meds and New Rx's Prescriptions: No Action methadone 10 mg tablet 120 mg PO DAILY acetaminophen 325 mg tablet,chewable 650 mg PO Q6H PRNQty: 20 0RF Patient Comments: pt states not taking 03/30/23 ibuprofen 600 mg tablet 600 mg PO TID PRNQty: 20 0RF Patient Comments: pt states not taking 03/30/23 Discharge Instructions Instructions: Hypokalemia, Opioid Overdose Additional Instructions: At this time your symptoms have notably improved/resolved. The opiate contaminant appears to be out of your system to the point that it is no longer causing respiratory depression. Your potassium levels are slightly low. Please try to eat food that is high in potassium. We have given you IV and oral potassium to help correct that here though. Please avoid any opiates or drugs as they can lead to significant potential harm. If you notice any worsening of your symptoms, or any new symptoms such as vomiting, diarrhea, fever, chills, shortness of breath, chest pain, numbness, weakness, or fainting , please return immediately to the emergency department for reevaluation. Please follow up with your primary care provider as soon as possible for reassessment and reevaluation. As always, it was a pleasure participating in your medical care today. Referrals: Catherine Orozco MD [Primary Care Provider, Medicine]
== END 2025-03-20 03:09 | disposition home or self-care (01) ==
PROVIDERS: Emergency Medicine; Emergency Provider Student in an Organized Health Care Education/Training Program; PCP Family Medicine
DX: T40.601A Poisoning by unspecified narcotics, accidental (unintentional), initial encounter (principal); J96.01 Acute respiratory failure with hypoxia; E87.6 Hypokalemia; F19.20 Other psychoactive substance dependence, uncomplicated
CPT/HCPCS: 00123; 80048; 82805; 93005; 96361; 96374; 99291; 84703; 85025; 93010; J2405; J3480

== ENCOUNTER 2025-04-07 20:03 | Emergency (ER) | payer MEDICAID, SELFPAY ==
[2025-04-07] VITALS (29 sets, daily range): BP systolic 96–125; BP diastolic 44–85; PULSE 87–114; RESP 15–22; TEMP 36.3; O2SAT 93–96
[2025-04-07] MEDS: Acetaminophen 500 MG TAB 1000 MG PO (21:10)
[2025-04-07] MEDS: Ibuprofen 600 MG TAB PO (21:10)
[2025-04-07] MEDS: Droperidol 5 MG/2 ML VIAL 1.25 MG IV (21:11)
[2025-04-07] MEDS: Normal Saline 1,000 ML 1000 ML IV (21:17)
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
[2025-04-08] VITALS (55 sets, daily range): BP systolic 90–123; BP diastolic 49–72; PULSE 67–101; RESP 14–22
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
== END 2025-04-08 06:47 | disposition home or self-care (01) ==
PROVIDERS: Emergency Provider General Practice; PCP Family Medicine
DX: S09.90XA Unspecified injury of head, initial encounter (principal); Y08.89XA Assault by other specified means, initial encounter
CPT/HCPCS: 96361; 96374; 99284; 99283; J1790

== ENCOUNTER 2025-04-21 12:41 | Inpatient (IN) | payer MEDICAID, SELFPAY ==
[2025-04-21 12:46] VITALS: BP 159/86; PULSE 113; RESP 18; TEMP 36.6; O2SAT 98
[2025-04-21 12:49] VITALS: BP 159/86; PULSE 113; RESP 18; TEMP 36.6; O2SAT 98
--- NOTE | 2025-04-21 13:00 | DI.CT_ITS ---
Exam(s) CT PELVIC W EXAM: CT PELVIC W CLINICAL HISTORY: abscess L. gluteal cleft. TECHNIQUE: Imaging Protocol: Axial computed tomography images with coronal and sagittal reformatted images were created and reviewed. CONTRAST MATERIAL: Intravenous: Omnipaque 350 Contrast volume:100 ml Contrast route:IV - Oral: no COMPARISON: CT CT ABDOMEN PELVIS W from 09/18/2022 FINDINGS: Bladder: Empty. Not evaluated. Bowel: Suboptimal evaluation due to lack of intra-abdominal fat and lack of oral contrast. No obstruction or bowel wall thickening. Peritoneal cavity: No ascites, collection or mesenteric inflammatory response. Reproductive: Unremarkable as visualized. Vasculature: Unremarkable. Bones: No evidence of bony destruction. Soft tissues: Soft tissue swelling posterior to the sacrum without evidence of abscess. Mildly enlarged bilateral inguinal lymph nodes, consistent with reactive lymph nodes. IMPRESSION: Edema in the soft tissues posterior to the sacrum. No evidence of discrete abscess or bony destruction RADIATION DOSE DELIVERED: Total DLP DATA REPOSITORY: All CT scans at this facility are submitted to the National Radiology Data Registry (NRDR) Dose Index Registry (DIR) with the [employer] (A[employer]). RADIATION OPTIMIZATION: All CT scans at this facility use at least one of these dose optimization techniques: automated exposure control; mA and/or kV adjustment per patient size (includes targeted exams where dose is matched to clinical indication); or iterative reconstruction.
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
[2025-04-21 14:33] LABS: Abs Immature Grans 0.27 10^3/uL (0.0-0.06); HCT 40.7 % (36.0-46.0); HGB 13.7 g/dL (11.2-15.7); Immature Grans % 1.0 %; MCH 30.5 pg (27.0-33.0); MCHC 33.7 % (32.0-36.0); MCV 91 fL (80-95); MPV 7.8 fL (8.0-11.0); Platelet Count 373 10^3/uL (130-400); RBC 4.49 10^6/uL (3.93-5.22); RDW 12.2 % (11.7-14.6); RDW-SD 40.5 fL
[2025-04-21 14:41] LABS: WBC 26.10 10^3/uL (4.4-10.8)
[2025-04-21 14:51] LABS: RBC Morphology Normal
[2025-04-21] MEDS: Acetaminophen 500 MG TAB 1000 MG PO (14:55)
[2025-04-21] MEDS: Lactated Ringers 1,000 ML 1000 ML IV (15:00)
[2025-04-21] MEDS: PIPERACILLIN/TAZO 3.375 GM in Normal Saline 50 ML IVPB ×2 (15:00→22:09)
[2025-04-21] MEDS: HYDROmorphone 2 MG/ML SYR 1 MG IVP ×2 (15:06→15:31)
[2025-04-21 15:44] LABS: ALT 21 U/L (14-59); AST 18 U/L (15-37); Albumin 3.1 g/dL (3.4-5.0); Alkaline Phosphatase 90 U/L (46-116); Anion Gap 10.4 mmol/L (3-11); BUN 6 mg/dL (7-18); Bilirubin, Total 0.5 mg/dL (0.2-1.0); CO2 23.6 mmol/L (21.0-32.0); Calcium 8.8 mg/dL (8.5-10.1); Chloride 104 mmol/L (98-107); Estimated GFR 109.98 (mL/min/1.73m2); Glucose 102 mg/dL (74-106); Magnesium 2.0 mg/dL (1.8-2.4); Potassium 3.4 mmol/L (3.5-5.1); Sodium 138 mmol/L (136-145); Total Protein 8.1 g/dL (6.4-8.2)
[2025-04-21] MEDS: Normal Saline - Diluent 50 ML VIAL IJ (16:04)
[2025-04-21] MEDS: Normal Saline Flush 10 ML SYR IVP ×3 (16:04→20:42)
[2025-04-21] MEDS: Omnipaque 350 MG/ML 100 ML BTL IJ (16:04)
[2025-04-21 16:07] LABS: HCG Qual (Serum) Negative
[2025-04-21 16:25] LABS: Troponin I 6 ng/L (<or=51)
[2025-04-21] MEDS: VANCOMYCIN/WATER (PEG) 1.5 GM/300 ML BAG IVPB (16:33)
[2025-04-21 16:43] LABS: Troponin I 6 ng/L (<or=51)
[2025-04-21] MEDS: HYDROmorphone 2 MG/ML SYR IVP (16:56)
[2025-04-21 17:49] LABS: Glucose Negative (Negative)
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
[2025-04-21 17:58] LABS: RBC >50 HPF (0-2); WBC >50 HPF (0-5)
[2025-04-21] MEDS: fentaNYL 100 MCG/2 ML VIAL IVP ×2 (18:06→22:09)
[2025-04-21 18:13] LABS: Cannabinoids THC Positive (Negative); METHADONE URINE SCREEN Negative (Negative)
--- NOTE | 2025-04-21 18:17 | W.PC.ACHO ---
Registration Status: ADM IN Primary Language: Preferred Language: Slovenian ED Information & Data Chief Complaint Cellulitis 04/21/25 14:45 Chief Complaint Cellulitis 04/21/25 13:58 Triage Note pt has sores all over body, 04/21/25 12:46 the worst in LLE which is also swollen now. pt reports using IV drugs -fent and is concerned it was laced with Xylazine. Medical / Surgical History (Updated 04/21/25 @ 17:18 by Ashleigh García MD) Cervical dysplasia Anxiety Sciatica Pituitary tumor Back pain Bunion, right Narcotic dependence Abscess of skin Tachycardia (12/26/14) 4 para 4 Left knee pain Class 2 obesity (Updated 02/27/23 @ 16:52 by Amanda Crandall MD) S/P laparotomy History of cholecystectomy History of bilateral tubal ligation Incision & Drainage, Abscess or Hematoma Most Recent Vital Signs Temperature 36.6 C 04/21/25 12:49 Pulse 113 H 04/21/25 12:49 Respiratory Rate 18 04/21/25 12:49 Blood Pressure 159/86 H 04/21/25 12:49 Pulse Oximetry 98 04/21/25 12:49 Pain Level 5 04/21/25 12:49 Allergies No Known Allergies Allergy (Unverified 04/21/25 12:50) Precautions Isolation Standard precaution 04/21/25 14:45 Active Medications Generic Name Dose Route Start Last Admin Trade Name Freq PRN Reason Stop Dose Admin Iohexol 100 ml 04/21/25 16:00 04/21/25 16:04 Omnipaque 350 Mg/Ml 100 Ml Btl IJ 05/21/25 23:59 100 ml DIRECTED MANISHA Administration Sodium Chloride 50 ml 04/21/25 16:00 04/21/25 16:04 Normal Saline - Diluent 50 Ml Vial IJ 50 ml DIRECTED MANISHA Administration Sodium Chloride 0 ml 04/21/25 15:54 04/21/25 16:04 Normal Saline Flush 10 Ml Syr IVP 10 ml PRN PRN Administration IV IV Catheter Type [Left Upper Saline Lock arm] IV Catheter Type [Right Upper Saline Lock arm] IV Catheter Gauge [Right Upper 18 arm] Diet Orders Category Date Time Status Regular/Normal [DIET] Nutrition 04/21/25 Dinner Active Diagnostics 04/21/25 04/21/25 04/21/25 Range/Units 16:10 15:55 15:40 WBC (4.4-10.8) 10^3/uL RBC (3.93-5.22) 10^6/uL Hgb (11.2-15.7) g/dL Hct (36.0-46.0) % MCV (80-95) fL MCH (27.0-33.0) pg MCHC (32.0-36.0) % RDW (11.7-14.6) % Plt Count (130-400) 10^3/uL MPV (8.0-11.0) fL Immature Gran % % Neutrophils % % Lymphocytes % % Monocytes % % Eosinophils % % Basophils % % Nucleated RBC % (0.0-0.3) % Absolute Neutrophils (1.2-6.7) 10^3/uL Absolute Lymphocytes (1.2-3.4) 10^3/uL Absolute Monocytes (0.1-0.8) 10^3/uL Absolute Eosinophils (0.0-0.7) 10^3/uL Absolute Basophils (0.0-0.2) 10^3/uL RBC Morphology VBG Lactate (<or=2.0) mmol/L Sodium (136-145) mmol/L Potassium (3.5-5.1) mmol/L Chloride (98-107) mmol/L Carbon Dioxide (21.0-32.0) mmol/L Anion Gap (3-11) mmol/L BUN (7-18) mg/dL Creatinine (0.55-1.02) mg/dL Est GFR (CKD-EPI 2020) (mL/min/1.73m2) Glucose (74-106) mg/dL Calcium (8.5-10.1) mg/dL Magnesium (1.8-2.4) mg/dL Total Bilirubin (0.2-1.0) mg/dL AST (15-37) U/L ALT (14-59) U/L Alkaline Phosphatase (46-116) U/L Troponin I Cancelled 6 (<or=51) ng/L Total Protein (6.4-8.2) g/dL Albumin (3.4-5.0) g/dL Serum HCG, Qual Negative Urine Color Dark Yellow (Yellow) Urine Clarity Sl Cloudy (Clear) Urine pH 6.5 (5-8) Ur Specific [place] 1.020 (1.005-1.025) Urine Protein >=300 H (Neg-Trace) mg/dL Urine Ketones Trace H (Negative) mg/dL Urine Blood Large H (Negative) Urine Nitrite Positive H (Negative) Urine Bilirubin Small H (Negative) Urine Urobilinogen 1.0 H (Up to 0.2) mg/dL Ur Leukocyte Esterase Small H (Negative) Urine RBC >50 H (0-2) HPF Urine WBC >50 H (0-5) HPF Ur Epithelial Cells Moderate (Negative) HPF Urine Crystals Negative (Negative) HPF Urine Bacteria Many (Negative) HPF Urine Casts 0-2 Fine Granular (Negative) LPF Urine Mucus Negative (Negative) Urine Other Rare Transitional (Negative) Ur Culture Indicated? No/Sq. Contamination Urine Glucose Negative (Negative) mg/dL Urine Opiates Screen Pending Ur Barbiturates Screen Pending Ur Tricyclics Screen Pending Ur Amphetamines Screen Pending U Benzodiazepines Scrn Pending Urine Cocaine Screen Pending Ur THC Screen Pending Syphilis Serology Pending HIV 1&2 Ag/Ab, 4th Gen Pending 04/21/25 Range/Units 14:19 WBC 26.10 H* (4.4-10.8) 10^3/uL RBC 4.49 (3.93-5.22) 10^6/uL Hgb 13.7 (11.2-15.7) g/dL Hct 40.7 (36.0-46.0) % MCV 91 (80-95) fL MCH 30.5 (27.0-33.0) pg MCHC 33.7 (32.0-36.0) % RDW 12.2 (11.7-14.6) % Plt Count 373 (130-400) 10^3/uL MPV 7.8 L (8.0-11.0) fL Immature Gran % 1.0 % Neutrophils % 83.8 % Lymphocytes % 8.1 % Monocytes % 6.6 % Eosinophils % 0.2 % Basophils % 0.3 % Nucleated RBC % 0.0 (0.0-0.3) % Absolute Neutrophils 21.87 H (1.2-6.7) 10^3/uL Absolute Lymphocytes 2.11 (1.2-3.4) 10^3/uL Absolute Monocytes 1.72 H (0.1-0.8) 10^3/uL Absolute Eosinophils 0.05 (0.0-0.7) 10^3/uL Absolute Basophils 0.08 (0.0-0.2) 10^3/uL RBC Morphology Normal VBG Lactate 1.6 (<or=2.0) mmol/L Sodium 138 (136-145) mmol/L Potassium 3.4 L (3.5-5.1) mmol/L Chloride 104 (98-107) mmol/L Carbon Dioxide 23.6 (21.0-32.0) mmol/L Anion Gap 10.4 (3-11) mmol/L BUN 6 L (7-18) mg/dL Creatinine 0.7 (0.55-1.02) mg/dL Est GFR (CKD-EPI 2020) 109.98 (mL/min/1.73m2) Glucose 102 (74-106) mg/dL Calcium 8.8 (8.5-10.1) mg/dL Magnesium 2.0 (1.8-2.4) mg/dL Total Bilirubin 0.5 (0.2-1.0) mg/dL AST 18 (15-37) U/L ALT 21 (14-59) U/L Alkaline Phosphatase 90 (46-116) U/L Troponin I 6 (<or=51) ng/L Total Protein 8.1 (6.4-8.2) g/dL Albumin 3.1 L (3.4-5.0) g/dL Serum HCG, Qual Urine Color (Yellow) Urine Clarity (Clear) Urine pH (5-8) Ur Specific [place] (1.005-1.025) Urine Protein (Neg-Trace) mg/dL Urine Ketones (Negative) mg/dL Urine Blood (Negative) Urine Nitrite (Negative) Urine Bilirubin (Negative) Urine Urobilinogen (Up to 0.2) mg/dL Ur Leukocyte Esterase (Negative) Urine RBC (0-2) HPF Urine WBC (0-5) HPF Ur Epithelial Cells (Negative) HPF Urine Crystals (Negative) HPF Urine Bacteria (Negative) HPF Urine Casts (Negative) LPF Urine Mucus (Negative) Urine Other (Negative) Ur Culture Indicated? Urine Glucose (Negative) mg/dL Urine Opiates Screen Ur Barbiturates Screen Ur Tricyclics Screen Ur Amphetamines Screen U Benzodiazepines Scrn Urine Cocaine Screen Ur THC Screen Syphilis Serology HIV 1&2 Ag/Ab, 4th Gen 04/21/25 15:40 Blood Culture - Pending Blood 04/21/25 14:19 Blood Culture - Pending Blood Intake and Output - 24 Hour Total 04/21/25 12:41 thru 04/21/25 17:31 Intake Total 1050 Balance 1050 Weight 68.5 kg Intake: IV 1050 Falls Risk Assessment History of Falls No History 04/21/25 14:45 Contributing Factors Medications 04/21/25 14:45 Ambulatory Aids Independent 04/21/25 14:45 Tubes/Lines None 04/21/25 14:45 Gait Evaluation No gait disturbance 04/21/25 14:45 Cognition No cognitive impairment 04/21/25 14:45 Fall Total Score 3 04/21/25 14:45 Level of Risk Standard/Low Risk 04/21/25 14:45 v v v v v v v v v Sending and/or Receiving Nurses: Please use comment section below to note any information pertinent to the patient hand-off not included above. Information / Comments: pt arrived @ [id number]. Report received from: Corazon ESTRADA
[2025-04-21] MEDS: Lactated Ringers 1,000 ML 100 ML IV (18:24)
[2025-04-21] MEDS: LORazepam 1 MG TAB 2 MG PO (19:52)
[2025-04-21 20:00] VITALS: BP 118/66; PULSE 92; RESP 24; TEMP 38; O2SAT 97
[2025-04-21] MEDS: fentaNYL 100 MCG/2 ML VIAL 50 MCG IVP (20:40)
[2025-04-21] MEDS: Nicotine 21 MG/24 HR PATCH TD (20:57)
[2025-04-21 23:21] VITALS: BP 132/76; PULSE 110; RESP 18; TEMP 38.1; O2SAT 97
[2025-04-21 23:48] VITALS: TEMP 38.4
[2025-04-22] VITALS (7 sets, daily range): BP systolic 101–130; BP diastolic 66–82; PULSE 73–91; RESP 16–22; TEMP 36.6–38; O2SAT 96–99
[2025-04-22] MEDS: fentaNYL 100 MCG/2 ML VIAL 50 MCG IVP ×8 (00:33→23:39)
[2025-04-22] MEDS: Pantoprazole 40 MG TABCR PO ×2 (00:33→06:36)
[2025-04-22] MEDS: Acetaminophen 500 MG TAB 1000 MG PO ×3 (00:33→15:45)
[2025-04-22] MEDS: Mylanta Suspension 30 ML CUP PO (00:34)
[2025-04-22] MEDS: LORazepam 1 MG TAB 2 MG PO ×3 (02:51→20:21)
[2025-04-22] MEDS: Normal Saline Flush 10 ML SYR IVP ×3 (03:07→20:12)
[2025-04-22] MEDS: VANCOMYCIN/WATER (PEG) 1.25 GM/250 ML BAG IVPB (05:19)
[2025-04-22] MEDS: Lactated Ringers 1,000 ML 100 ML IV (05:21)
[2025-04-22] MEDS: Water,Injection,Sterile 10 ML VIAL (05:31)
[2025-04-22] MEDS: PIPERACILLIN/TAZO 3.375 GM in Normal Saline 50 ML IVPB ×3 (06:36→21:42)
[2025-04-22 07:06] LABS: Abs Immature Grans 0.15 10^3/uL (0.0-0.06); HCT 37.6 % (36.0-46.0); HGB 12.5 g/dL (11.2-15.7); Immature Grans % 0.9 %; MCH 30.7 pg (27.0-33.0); MCHC 33.2 % (32.0-36.0); MCV 92 fL (80-95); MPV 8.2 fL (8.0-11.0); Platelet Count 272 10^3/uL (130-400); RBC 4.07 10^6/uL (3.93-5.22); RDW 12.2 % (11.7-14.6); RDW-SD 41.6 fL; WBC 17.54 10^3/uL (4.4-10.8)
[2025-04-22 07:39] LABS: ALT 14 U/L (14-59); AST 10 U/L (15-37); Albumin 2.1 g/dL (3.4-5.0); Alkaline Phosphatase 76 U/L (46-116); Anion Gap 7.6 mmol/L (3-11); BUN 9 mg/dL (7-18); Bilirubin, Total 0.3 mg/dL (0.2-1.0); CO2 26.4 mmol/L (21.0-32.0); Calcium 8.2 mg/dL (8.5-10.1); Chloride 107 mmol/L (98-107); Estimated GFR 93.70 (mL/min/1.73m2); Glucose 87 mg/dL (74-106); Magnesium 1.9 mg/dL (1.8-2.4); Potassium 3.8 mmol/L (3.5-5.1); Sodium 141 mmol/L (136-145); Total Protein 6.0 g/dL (6.4-8.2)
[2025-04-22 07:41] LABS: RBC Morphology Normal
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
[2025-04-22 10:03] LABS: HIV-1/2 Ag & Ab Screen Negative (Negative)
[2025-04-22 10:48] LABS: Vancomycin, Random 19.1 ug/mL
[2025-04-22 13:18] LABS: Syphilis Serology (RPR) Negative (Negative)
--- NOTE | 2025-04-22 13:21 | CHAPLAIN ---
When I visited with Chary this morning about 11:30, she was up and eating a late breakfast. She said she was hoping to get more pain medication soon and then waiting for lunch. She said she'd talked with her nurse about the pain meds. I explained my role and offered support.
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
[2025-04-22] MEDS: VANCOMYCIN/WATER (PEG) 1 GM/200 ML BAG IVPB (16:35)
--- NOTE | 2025-04-22 17:22 | W.PM.PROGNOT ---
Date of Service Date of service: 04/22/25 Time of Service: 09:00 Assessment and Plan Assessment and plan (1) Sepsis due to skin infection: Status: Acute Assessment and plan: Patient presented meeting sepsis criteria with tachycardia, hypertension, leukocytosis, active skin infection and possible UTI with use of shared needles Gluteal wounds concerning for tracked infection but CT shows no abscess, no bony involvement Pseudomonas possible as well as MRSA, vancomycin and pip-tazo appropriate, will continue Wound care Monitor cultures Continue IV fluids Sept 12 cultures NGTD Continue wound care (2) Polysubstance dependence including opioid type drug with complication, continuous use: Status: Acute Assessment and plan: Daily use of fentanyl and cocaine with new pain burden Will treat narcotic dependence with goal of preventing withdrawal, as patient will need multiple days of IV antibiotics She is high risk for leaving AMA Fentanyl dosing changed to PRN PRN ativan for anxiety (3) Abnormal urinalysis: Status: Acute Assessment and plan: UA with RBCs, WBCs, nitrites, LE If UTI, covered with vanc and pip-tazo Monitor cultures (4) Unsheltered unhoused person: Status: Acute Assessment and plan: Patient has no domicile and reports that she slept in a closet last night. Requesting social worker masters consult Subjective Subjective Interval history since last seen: Ms. Merino is having nausea and some vomiting. She feels this is from what she used the morning before she came in. She is asking for fewer PRN doses of narcotics than expected. Exam Narrative Exam Narrative: General: This is a pleasant, chronically ill-appearing, thin woman in distress due to pain HEENT: Normocephalic, atraumatic CV: tachycardic, no murmur Resp: CTAB Abd: soft, NTND MSK: voluntary motion x4. Skin: eschars in various stages of healing on all extremities. RLE anterior erythema, edema, indurated and warm. Left gluteal cleft with 3-4 cm erythematous/edematous area, fluctuant, with draining ulcers Neuro: Awake, alert, no focal deficits Objective Last Vital Signs Temp 37.9 C H 04/22/25 15:45 Pulse 91 H 04/22/25 15:25 Resp 16 04/22/25 15:25 BP 116/82 04/22/25 15:25 Pulse Ox 99 04/22/25 15:25 Laboratory Results - last 24 hr 04/21/25 04/21/25 04/22/25 15:40 15:55 06:24 WBC 17.54 H RBC 4.07 Hgb 12.5 Hct 37.6 MCV 92 MCH 30.7 MCHC 33.2 RDW 12.2 Plt Count 272 MPV 8.2 Immature Gran % 0.9 Neutrophils % 72.1 Lymphocytes % 16.9 Monocytes % 8.8 Eosinophils % 0.9 Basophils % 0.4 Nucleated RBC % 0.0 Absolute Neutrophils 12.65 H Absolute Lymphocytes 2.96 Absolute Monocytes 1.54 H Absolute Eosinophils 0.16 Absolute Basophils 0.07 RBC Morphology Normal Sodium 141 Potassium 3.8 Chloride 107 Carbon Dioxide 26.4 Anion Gap 7.6 BUN 9 Creatinine 0.8 Est GFR (CKD-EPI 2020) 93.70 Glucose 87 Calcium 8.2 L Magnesium 1.9 Total Bilirubin 0.3 AST 10 L ALT 14 Alkaline Phosphatase 76 Total Protein 6.0 L Albumin 2.1 L Urine Color Dark Yellow Urine Clarity Sl Cloudy Urine pH 6.5 Ur Specific [place] 1.020 Urine Protein >=300 H Urine Ketones Trace H Urine Blood Large H Urine Nitrite Positive H Urine Bilirubin Small H Urine Urobilinogen 1.0 H Ur Leukocyte Esterase Small H Urine RBC >50 H Urine WBC >50 H Ur Epithelial Cells Moderate Urine Crystals Negative Urine Bacteria Many Urine Casts 0-2 Fine Granular Urine Mucus Negative Urine Other Rare Transitional Ur Culture Indicated? No/Sq. Contamination Urine Glucose Negative Random Vancomycin Urine Opiates Screen Positive A Urine Methadone Screen Negative Ur Barbiturates Screen Negative Ur Tricyclics Screen Negative Ur Amphetamines Screen Negative U Benzodiazepines Scrn Negative Urine Cocaine Screen Positive A Ur THC Screen Positive A Syphilis Serology Negative HIV 1&2 Ag/Ab, 4th Gen Negative 04/22/25 09:58 WBC RBC Hgb Hct MCV MCH MCHC RDW Plt Count MPV Immature Gran % Neutrophils % Lymphocytes % Monocytes % Eosinophils % Basophils % Nucleated RBC % Absolute Neutrophils Absolute Lymphocytes Absolute Monocytes Absolute Eosinophils Absolute Basophils RBC Morphology Sodium Potassium Chloride Carbon Dioxide Anion Gap BUN Creatinine Est GFR (CKD-EPI 2020) Glucose Calcium Magnesium Total Bilirubin AST ALT Alkaline Phosphatase Total Protein Albumin Urine Color Urine Clarity Urine pH Ur Specific [place] Urine Protein Urine Ketones Urine Blood Urine Nitrite Urine Bilirubin Urine Urobilinogen Ur Leukocyte Esterase Urine RBC Urine WBC Ur Epithelial Cells Urine Crystals Urine Bacteria Urine Casts Urine Mucus Urine Other Ur Culture Indicated? Urine Glucose Random Vancomycin 19.1 Urine Opiates Screen Urine Methadone Screen Ur Barbiturates Screen Ur Tricyclics Screen Ur Amphetamines Screen U Benzodiazepines Scrn Urine Cocaine Screen Ur THC Screen Syphilis Serology HIV 1&2 Ag/Ab, 4th Gen Time Spent with Patient Time Spent with Patient: 25-34 minutes Time was spent: preparing to see the patient(eg.review tests), obtaining and/or reviewing separately otained hiistory, ordering medications,tests, procedures, referring, communicating with other health continuum of care manager, indepentently interpreting results, counseling the patient and care coordination
[2025-04-22] MEDS: Enoxaparin 40 MG/0.4 ML SYR SC (20:09)
[2025-04-22] MEDS: Nicotine 21 MG/24 HR PATCH TD (20:10)
[2025-04-23 03:05] VITALS: BP 130/78; PULSE 75; RESP 18; TEMP 37.2; O2SAT 100
[2025-04-23] MEDS: fentaNYL 100 MCG/2 ML VIAL 50 MCG IVP ×9 (03:20→23:19)
[2025-04-23] MEDS: LORazepam 1 MG TAB 2 MG PO ×3 (03:20→21:10)
[2025-04-23] MEDS: VANCOMYCIN/WATER (PEG) 1 GM/200 ML BAG IVPB ×2 (03:45→16:54)
[2025-04-23] MEDS: PIPERACILLIN/TAZO 3.375 GM in Normal Saline 50 ML IVPB ×3 (06:08→22:15)
[2025-04-23 06:42] LABS: Abs Immature Grans 0.13 10^3/uL (0.0-0.06); HCT 35.7 % (36.0-46.0); HGB 12.0 g/dL (11.2-15.7); Immature Grans % 0.8 %; MCH 30.5 pg (27.0-33.0); MCHC 33.6 % (32.0-36.0); MCV 91 fL (80-95); MPV 8.1 fL (8.0-11.0); Platelet Count 309 10^3/uL (130-400); RBC 3.94 10^6/uL (3.93-5.22); RDW 12.2 % (11.7-14.6); RDW-SD 40.5 fL; WBC 15.49 10^3/uL (4.4-10.8)
[2025-04-23 07:07] LABS: Vancomycin, Random 25.3 ug/mL
[2025-04-23 07:21] LABS: ALT 12 U/L (14-59); AST 12 U/L (15-37); Albumin 2.1 g/dL (3.4-5.0); Alkaline Phosphatase 62 U/L (46-116); Anion Gap 8.1 mmol/L (3-11); BUN 10 mg/dL (7-18); Bilirubin, Total 0.3 mg/dL (0.2-1.0); CO2 22.9 mmol/L (21.0-32.0); Calcium 8.5 mg/dL (8.5-10.1); Chloride 106 mmol/L (98-107); Estimated GFR 109.98 (mL/min/1.73m2); Glucose 101 mg/dL (74-106); Magnesium 2.0 mg/dL (1.8-2.4); Potassium 3.8 mmol/L (3.5-5.1); Sodium 137 mmol/L (136-145); Total Protein 6.5 g/dL (6.4-8.2)
[2025-04-23 07:46] VITALS: BP 127/80; PULSE 78; RESP 16; TEMP 37.5; O2SAT 96
[2025-04-23] MEDS: Enoxaparin 40 MG/0.4 ML SYR SC (08:22)
[2025-04-23] MEDS: Normal Saline Flush 10 ML SYR IVP ×4 (08:23→19:18)
[2025-04-23] MEDS: Pantoprazole 40 MG TABCR PO (08:23)
[2025-04-23 11:18] VITALS: BP 145/85; PULSE 76; RESP 16; TEMP 36.9; O2SAT 99
[2025-04-23] MEDS: Ondansetron 4 MG/2 ML VIAL IVP (15:50)
[2025-04-23] MEDS: LORazepam 20 MG/10 ML VIAL IVP (15:50)
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
[2025-04-23 19:53] VITALS: BP 136/93; PULSE 82; RESP 20; TEMP 38.3; O2SAT 98
[2025-04-23] MEDS: Nicotine 21 MG/24 HR PATCH TD (21:10)
[2025-04-23 21:37] LABS: Glucose Negative (Negative)
[2025-04-23 21:46] LABS: RBC 20-50 HPF (0-2)
[2025-04-23 23:03] VITALS: BP 136/84; PULSE 77; RESP 20; TEMP 37.2; O2SAT 97
[2025-04-24] MEDS: fentaNYL 100 MCG/2 ML VIAL 50 MCG IVP ×8 (01:23→15:29)
[2025-04-24] MEDS: VANCOMYCIN/WATER (PEG) 1 GM/200 ML BAG IVPB (03:43)
[2025-04-24 03:49] VITALS: BP 128/85; PULSE 82; RESP 16; TEMP 37.3; O2SAT 96
[2025-04-24] MEDS: PIPERACILLIN/TAZO 3.375 GM in Normal Saline 50 ML IVPB (06:08)
[2025-04-24] MEDS: Pantoprazole 40 MG TABCR PO (06:10)
[2025-04-24] MEDS: LORazepam 1 MG TAB 2 MG PO ×3 (06:10→14:26)
[2025-04-24 07:09] LABS: Abs Immature Grans 0.05 10^3/uL (0.0-0.06); HCT 38.6 % (36.0-46.0); HGB 12.8 g/dL (11.2-15.7); Immature Grans % 0.4 %; MCH 30.1 pg (27.0-33.0); MCHC 33.2 % (32.0-36.0); MCV 91 fL (80-95); MPV 8.0 fL (8.0-11.0); Platelet Count 369 10^3/uL (130-400); RBC 4.25 10^6/uL (3.93-5.22); RDW 12.2 % (11.7-14.6); RDW-SD 40.6 fL; WBC 11.54 10^3/uL (4.4-10.8)
[2025-04-24 07:24] LABS: ALT 19 U/L (14-59); AST 20 U/L (15-37); Albumin 2.1 g/dL (3.4-5.0); Alkaline Phosphatase 60 U/L (46-116); Anion Gap 8.7 mmol/L (3-11); BUN 6 mg/dL (7-18); Bilirubin, Total 0.2 mg/dL (0.2-1.0); CO2 25.3 mmol/L (21.0-32.0); Calcium 8.4 mg/dL (8.5-10.1); Chloride 105 mmol/L (98-107); Estimated GFR 93.70 (mL/min/1.73m2); Glucose 107 mg/dL (74-106); Magnesium 1.9 mg/dL (1.8-2.4); Potassium 3.9 mmol/L (3.5-5.1); Sodium 139 mmol/L (136-145); Total Protein 6.7 g/dL (6.4-8.2)
[2025-04-24] MEDS: Normal Saline Flush 10 ML SYR IVP (09:27)
[2025-04-24] MEDS: Enoxaparin 40 MG/0.4 ML SYR SC (09:27)
[2025-04-24] MEDS: Nicotine 4 MG GUM CH ×4 (09:46→14:25)
[2025-04-24 09:55] VITALS: BP 145/91; PULSE 95; RESP 20; TEMP 36.8; O2SAT 98
--- NOTE | 2025-04-24 11:38 | PDOC.CMDIS ---
Date of service: 04/24/25 Time of Service: 15:14 LACE Index Scoring Tool Questions: Length of Stay (in days): 3 Was the patient admitted via the E.D.?: Yes E.D. Visits: 5 Answers: Total Score: 10 Risk of Readmission: High Risk Care Management Discharge Plan Reason for Hospitalization: Skin infection Discharge Plan: Chary is discharged to the community. Patient is provided with clothing and encouraged to follow up with community providers and the discharge plan of care as directed. The patient was given an opportunity to meet with a CHW from [employer], but declined. She is provided with contact info should she change her mind. Patient is also familiar with [employer] and is encouraged to reach out to them for community support. She is in contact with a friend and has plans for them to pick her up. Patient/Family Education Needs: Review discharge instructions, limitations and plan to follow up after discharge. Kim ask me three.
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
[2025-04-24] MEDS: Acetaminophen 500 MG TAB 1000 MG PO (14:26)
[2025-04-24] MEDS: DALBAVANCIN 1,500 MG in DEXTROSE 5%-WATER 325 ML 650 MG IVPB (15:17)
[2025-04-25 11:20] LABS: Chlamydia Result Negative (Negative); GC Result Negative (Negative)
== END 2025-04-24 16:08 | disposition home or self-care (01) | DRG 872 ==
LOC: ER 17:49 → MS 18:12
PROVIDERS: Admitting Provider Family Medicine; Emergency Provider Emergency Medicine; PCP Family Medicine; Responsible Provider Family Medicine; Visit Provider Family Medicine
DX: A41.9 Sepsis, unspecified organism (principal); N39.0 Urinary tract infection, site not specified; F11.20 Opioid dependence, uncomplicated; F14.20 Cocaine dependence, uncomplicated; Z59.02 Unsheltered homelessness; L03.115 Cellulitis of right lower limb; L02.31 Cutaneous abscess of buttock; Z72.89 Other problems related to lifestyle; F32.A Depression, unspecified; K21.9 Gastro-esophageal reflux disease without esophagitis; F10.20 Alcohol dependence, uncomplicated; F17.210 Nicotine dependence, cigarettes, uncomplicated; F43.12 Post-traumatic stress disorder, chronic; Z62.810 Personal history of physical and sexual abuse in childhood; M51.26 Other intervertebral disc displacement, lumbar region; B18.2 Chronic viral hepatitis C; F41.9 Anxiety disorder, unspecified; E66.812 Obesity, class 2; R11.2 Nausea with vomiting, unspecified; B95.62 Methicillin resistant Staphylococcus aureus infection as the cause of diseases classified elsewhere
CPT/HCPCS: 00123; 36415; 80053; 80307; 87040; 87389; 87491; 87591; 96365; 96366; 96375; 96376; 97161; 99285; J1650; 72193; 80202; 81003; 81015; 83605; 83735; 84484; 84703; 85025; 86592; 99222; 99231; 99238; J0875; J1171; J2060; J2405; J2543; J3010; J3373; J3490

== ENCOUNTER 2025-04-26 16:33 | Inpatient (IN) | payer MEDICAID, SELFPAY ==
[2025-04-26 16:41] VITALS: BP 137/89; PULSE 113; RESP 20; TEMP 36.9; O2SAT 95
--- NOTE | 2025-04-26 18:00 | DI.RAD_ITS ---
Exam(s) XR TIB/FIB RT EXAM: XR TIB/FIB RT CLINICAL HISTORY: abscess, ivda. TECHNIQUE: 2D digital imaging was performed. COMPARISON: No exams were available for comparison FINDINGS: Two views No evidence fracture nor osseous lesions. There is abnormal air in the soft tissues anterior to the upper tibia at and below the level of the anterior tibial tubercle extending caudally for distance of 10 cm. There is soft tissue swelling at this level and there is edema- probable cellulitis throughout the calf. No evidence of osteomyelitis. IMPRESSION: Abnormal 10 cm length air collection in the soft tissues anterior to the upper tibia. Consistent with significant infectious process such as abscess. There is also edema throughout the calf. DATA REPOSITORY: RADIATION DOSE DELIVERED:
--- NOTE | 2025-04-26 18:00 | DI.RAD_ITS ---
Exam(s) XR HUMERUS RT EXAM: XR HUMERUS RT CLINICAL HISTORY: cellulitis ivda. TECHNIQUE: 2D digital imaging was performed. COMPARISON: No exams were available for comparison FINDINGS: Two views No evidence fracture of the humerus. No dislocation. Bone density normal. No osseous lesions. No radiographic evidence of osteomyelitis. No gas in the soft tissues. No radiopaque foreign bodies. IMPRESSION: No significant radiographic findings. DATA REPOSITORY: RADIATION DOSE DELIVERED:
[2025-04-26] MEDS: CEFEPIME 2 GM in Normal Saline 100 ML IVPB (18:53)
[2025-04-26 19:20] LABS: Abs Immature Grans 0.05 10^3/uL (0.0-0.06); HCT 39.5 % (36.0-46.0); HGB 13.0 g/dL (11.2-15.7); Immature Grans % 0.4 %; MCH 30.4 pg (27.0-33.0); MCHC 32.9 % (32.0-36.0); MCV 93 fL (80-95); MPV 7.8 fL (8.0-11.0); Platelet Count 400 10^3/uL (130-400); RBC 4.27 10^6/uL (3.93-5.22); RDW 11.9 % (11.7-14.6); RDW-SD 40.8 fL; WBC 11.36 10^3/uL (4.4-10.8)
[2025-04-26 19:37] LABS: ALT 27 U/L (14-59); AST 18 U/L (15-37); Albumin 2.5 g/dL (3.4-5.0); Alkaline Phosphatase 69 U/L (46-116); Anion Gap 8.8 mmol/L (3-11); BUN 15 mg/dL (7-18); Bilirubin, Total 0.2 mg/dL (0.2-1.0); C-Reactive Protein 1.59 mg/dL (<or=0.5); CO2 27.2 mmol/L (21.0-32.0); Calcium 8.4 mg/dL (8.5-10.1); Chloride 106 mmol/L (98-107); Estimated GFR 93.70 (mL/min/1.73m2); Glucose 105 mg/dL (74-106); Potassium 3.4 mmol/L (3.5-5.1); Sodium 142 mmol/L (136-145); Total Protein 7.0 g/dL (6.4-8.2)
--- NOTE | 2025-04-26 21:47 | DI.VRAD_ITS ---
PROCEDURE INFORMATION: Exam: XR Right Humerus Exam date and time: 04/26/2025 7:58 PM Age: 44 years old Clinical indication: Pain; Upper arm; Right; Abscess, ivda TECHNIQUE: Imaging protocol: Radiologic exam of the right humerus. Views: 2 or more views. COMPARISON: No relevant prior studies available. FINDINGS: Bones/joints: Two views of the right humerus reveal no acute fracture or dislocation. Within the limits of the exam, no focal cortical destruction or erosions are seen. Soft tissues: No gross focal soft tissue abnormality is demonstrated. IMPRESSION: No acute fracture seen in the right humerus. Dictated and Authenticated by: Jorge Gallego MD. Orderin Germán Bernard MD
--- NOTE | 2025-04-26 22:04 | DI.VRAD_ITS ---
PROCEDURE INFORMATION: Exam: XR Right Tibia and Fibula Exam date and time: 04/26/2025 7:56 PM Age: 44 years old Clinical indication: Pain; Lower leg; Right; Abscess, ivda TECHNIQUE: Imaging protocol: Radiologic exam of the right tibia and fibula. Views: 2 views. COMPARISON: No relevant prior studies available. FINDINGS: Bones/joints: Two views of the right foreleg reveal no acute fracture or dislocation. No cortical destruction or bony erosions are seen. Soft tissues: There is a collection of gas in the soft tissues anterior to the proximal tibia measuring approximately 1.5 cm x 2.5 cm x 9.8 cm, best demonstrated by the lateral view. There are scattered soft tissue calcifications, at least in part probably representing vascular calcification. IMPRESSION: 1. Soft tissue gas collection anterior to the proximal tibia measuring 1.5 cm x 2.5 cm x 9.8 cm. Recent instrumentation or a recent procedure could introduce gas into the soft tissues; however, infection by a gas-forming organism is suspected given the provided history of an abscess. Clinical correlation is recommended. 2. No acute fracture seen in the right foreleg. Dictated and Authenticated by: Jorge Gallego MD. Orderin Germán Bernard MD
--- NOTE | 2025-04-26 23:00 | DI.CT_ITS ---
Exam(s) CT LOWER EXTREMITY RT W EXAM: CT LOWER EXTREMITY RT W CLINICAL HISTORY: abscess. TECHNIQUE: Imaging Protocol: Axial computed tomography images with coronal and sagittal reformatted images were created and reviewed. CONTRAST MATERIAL: Intravenous: Omnipaque 350 Contrast volume:100 mL contrast route:IV - COMPARISON: Plain films earlier same date reviewed FINDINGS: SOFT TISSUES: There is a 10 cm length x 1.3 cm x 3.3 cm subcutaneous collection of fluid and gas anterior to the proximal tibia with thin marginal enhancement. Some of the gas appears to channel towards the skin and there is probably an overlying laceration. There is no radiopaque foreign body. There is adjacent fat stranding. There is subcutaneous edema throughout the calf. OSSEOUS: No fractures. No evidence of osteomyelitis in the subjacent tibia. No incidental osseous lesions. IMPRESSION: There is a 10 x 1.3 x 3.3 cm gas containing abscess anterior to the proximal right tibia, as described above. Consistent with infection/abscess by gas- forming organism. There may be continuity with the skin surface. Clinical correlation recommended. No evidence of osteomyelitis. Preliminary virtual Radiology report was reviewed. RADIATION DOSE DELIVERED: 240.81mGy.cm Total DLP DATA REPOSITORY: All CT scans at this facility are submitted to the National Radiology Data Registry (NRDR) Dose Index Registry (DIR) with the [employer] (A[employer]). RADIATION OPTIMIZATION: All CT scans at this facility use at least one of these dose optimization techniques: automated exposure control; mA and/or kV adjustment per patient size (includes targeted exams where dose is matched to clinical indication); or iterative reconstruction.
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
[2025-04-26] MEDS: Omnipaque 350 MG/ML 100 ML BTL IJ (23:27)
[2025-04-26] MEDS: Normal Saline - Diluent 50 ML VIAL IJ (23:27)
[2025-04-26] MEDS: Normal Saline Flush 10 ML SYR IVP (23:27)
--- NOTE | 2025-04-26 23:53 | DI.VRAD_ITS ---
PROCEDURE INFORMATION: Exam: CT Right Lower Extremity With Contrast, Leg Exam date and time: 04/26/2025 11:13 PM Age: 44 years old Clinical indication: Other: Abscess TECHNIQUE: Imaging protocol: CT of the right lower extremity with intravenous contrast was performed. Exam focused on the lower leg. Contrast material: OMNI 350; Contrast volume: 100 ml; Contrast route: INTRAVENOUS (IV); COMPARISON: CR XR TIB/FIB LT 04/26/2025 7:56 PM FINDINGS: Bones/joints: CT imaging through the right foreleg includes the right ankle and partially includes the right knee. No acute fracture or dislocation is seen. No cortical destruction or erosions are seen to suggest osteomyelitis. Please note that MRI and nuclear medicine bone scanning are both more sensitive for the detection of early osteomyelitis if this is of clinical concern. There is no knee effusion. Soft tissues: There is a 1.2 cm x 3.3 cm x 10.3 cm complex subcutaneous collection of fluid and gas anterior to the proximal right tibia with thin marginal enhancement suspicious for an abscess. There is adjacent hazy fat stranding, overlying skin thickening, and what appears to be a small cutaneous defect with material extending external to the wound, possibly gauze packing although this is uncertain. Correlation with procedure history is recommended. There is asymmetric subcutaneous edema throughout the right foreleg. Small bilateral popliteal cysts are incidentally noted. IMPRESSION: 1.2 cm x 3.3 cm x 10.3 cm gas containing subcutaneous abscess anterior to the proximal right tibia, as described. Gas within the fluid collection possibly results from recent instrumentation, gauze packing, or infection by a gas-forming organism. Clinical correlation is recommended. Dictated and Authenticated by: Jorge Gallego MD. Orderin Germán Bernard MD
[2025-04-27] VITALS (9 sets, daily range): BP systolic 104–122; BP diastolic 68–89; PULSE 62–78; RESP 18–24; TEMP 36.6–37; O2SAT 96–100
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
[2025-04-27] MEDS: Acetaminophen 325 MG TAB PO ×2 (02:03→09:35)
[2025-04-27] MEDS: MORPHine 2 MG/ML SYR IVP ×3 (02:26→09:35)
[2025-04-27] MEDS: Normal Saline Flush 10 ML SYR IVP ×4 (02:27→09:35)
--- NOTE | 2025-04-27 02:45 | W.PC.ACHO ---
Registration Status: ADM IN Primary Language: Preferred Language: Divehi ED Information & Data Chief Complaint RashLesion 04/26/25 23:11 Triage Note Reports burning sensation 04/26/25 16:41 around rash on lower R leg that has been getting worse over the past week. PT reports that she has been assessed and treated for this rash before but that she was not prescribed antibiotics or pain control and that the rash is still bothering her. Medical / Surgical History (Last Reviewed 11/27/24 @ 10:03 by Harmony Green NP) Cervical dysplasia Anxiety Sciatica Pituitary tumor Back pain Bunion, right Narcotic dependence Abscess of skin Tachycardia (12/26/14) 4 para 4 Left knee pain Class 2 obesity (Last Reviewed 11/27/24 @ 10:03 by Harmony Green NP) S/P laparotomy History of cholecystectomy History of bilateral tubal ligation Incision & Drainage, Abscess or Hematoma Most Recent Vital Signs Temperature 37.0 C 04/27/25 01:26 Temperature Source Temporal Artery Scan 04/27/25 01:26 Pulse 70 04/27/25 01:22 Respiratory Rate 18 04/27/25 01:26 Respiratory Effort Normal 04/27/25 01:26 Respiratory Depth Normal 04/27/25 01:26 Respiratory Pattern Normal 04/27/25 01:26 Blood Pressure 122/89 04/27/25 01:22 Blood Pressure Mean 97 04/27/25 01:22 Blood Pressure Position Sitting 04/26/25 16:41 Pulse Oximetry 96 04/27/25 01:26 Oxygen Delivery Method Room Air 04/27/25 01:26 Oxygen Flow Rate 0 04/27/25 01:26 Pain Level 8 04/27/25 02:26 Allergies No Known Allergies Allergy (Unverified 04/21/25 12:50) Active Medications Generic Name Dose Route Start Last Admin Trade Name Freq PRN Reason Stop Dose Admin Acetaminophen 0 mg 04/27/25 00:28 04/27/25 02:03 Acetaminophen 325 Mg Tab PO 650 mg Q4H PRN PRN Administration Iohexol 100 ml 04/26/25 23:30 04/26/25 23:27 Omnipaque 350 Mg/Ml 100 Ml Btl IJ 05/26/25 23:59 100 ml DIRECTED MANISHA Administration Morphine Sulfate 2 mg 04/27/25 02:11 04/27/25 02:26 Morphine 2 Mg/Ml Syr IVP 2 mg Q4H PRN PRN Administration Sodium Chloride 50 ml 04/26/25 23:30 04/26/25 23:27 Normal Saline - Diluent 50 Ml Vial IJ 50 ml DIRECTED MANISHA Administration Sodium Chloride 0 ml 04/26/25 23:26 04/27/25 02:27 Normal Saline Flush 10 Ml Syr IVP 20 ml PRN PRN Administration IV IV Catheter Type [Left Forearm Saline Lock ] IV Catheter Gauge [Left 20 Forearm] Diet Orders Category Date Time Status Regular/Normal [DIET] Nutrition 04/27/25 Breakfast Active Diagnostics 04/27/25 04/26/25 Range/Units 05:35 19:13 WBC Pending 11.36 H (4.4-10.8) 10^3/uL RBC Pending 4.27 (3.93-5.22) 10^6/uL Hgb Pending 13.0 (11.2-15.7) g/dL Hct Pending 39.5 (36.0-46.0) % MCV Pending 93 (80-95) fL MCH Pending 30.4 (27.0-33.0) pg MCHC Pending 32.9 (32.0-36.0) % RDW Pending 11.9 (11.7-14.6) % Plt Count Pending 400 (130-400) 10^3/uL MPV Pending 7.8 L (8.0-11.0) fL Immature Gran % Pending 0.4 % Neutrophils % Pending 71.7 % Lymphocytes % Pending 20.5 % Monocytes % Pending 5.9 % Eosinophils % Pending 1.0 % Basophils % Pending 0.5 % Nucleated RBC % 0.0 (0.0-0.3) % Absolute Neutrophils Pending 8.15 H (1.2-6.7) 10^3/uL Absolute Lymphocytes Pending 2.33 (1.2-3.4) 10^3/uL Absolute Monocytes Pending 0.67 (0.1-0.8) 10^3/uL Absolute Eosinophils Pending 0.11 (0.0-0.7) 10^3/uL Absolute Basophils Pending 0.06 (0.0-0.2) 10^3/uL VBG Lactate 1.2 (<or=2.0) mmol/L Sodium Pending 142 (136-145) mmol/L Potassium Pending 3.4 L (3.5-5.1) mmol/L Chloride Pending 106 (98-107) mmol/L Carbon Dioxide Pending 27.2 (21.0-32.0) mmol/L Anion Gap Pending 8.8 (3-11) mmol/L BUN Pending 15 (7-18) mg/dL Creatinine Pending 0.8 (0.55-1.02) mg/dL Est GFR (CKD-EPI 2020) Pending 93.70 (mL/min/1.73m2) Glucose Pending 105 (74-106) mg/dL Calcium Pending 8.4 L (8.5-10.1) mg/dL Total Bilirubin Pending 0.2 (0.2-1.0) mg/dL AST Pending 18 (15-37) U/L ALT Pending 27 (14-59) U/L Alkaline Phosphatase Pending 69 (46-116) U/L C-Reactive Protein 1.59 H (<or=0.5) mg/dL Total Protein Pending 7.0 (6.4-8.2) g/dL Albumin Pending 2.5 L (3.4-5.0) g/dL 04/26/25 19:45 Wound Culture - Pending Leg - Right Gram Stain - Final 04/26/25 19:28 Blood Culture - Pending Blood 04/26/25 19:13 Blood Culture - Pending Blood [id number] Documentation POC Urine Test Start: 04/26/25 17:53 Freq: .Urine Test Status: Active Protocol: Activity Type Activity Date Activity User E-sign Co-sign Detail Recorded Client Recorded Date Recorded By Document 04/26/25 19:49 AB [id number] 04/26/25 19:49 AB Intake and Output - 24 Hour Total 04/26/25 16:32 thru 04/27/25 01:26 Intake Total 100 Balance 100 Weight 68.583 kg Intake: IV 100 Falls Risk Assessment History of Falls No History 04/27/25 01:26 Contributing Factors Impairments 04/27/25 01:26 Ambulatory Aids Independent 04/27/25 01:26 Tubes/Lines With any additional score 04/27/25 01:26 Gait Evaluation W/any additional score 04/27/25 01:26 Cognition No cognitive impairment 04/27/25 01:26 Fall Total Score 43 04/27/25 01:26 Level of Risk Moderate Risk 04/27/25 01:26 Problems (Last Reviewed 11/27/24 @ 10:03 by Harmony Green NP) Cellulitis (Acute) Polydrug abuse, continuous (Acute 12/26/14) Hepatitis C (Chronic) v v v v v v v v v Sending and/or Receiving Nurses: Please use comment section below to note any information pertinent to the patient hand-off not included above. Information / Comments: Report received from: Evelyn Solis RN
[2025-04-27] MEDS: CEFEPIME 2 GM in Normal Saline 100 ML IVPB ×2 (05:21→18:26)
[2025-04-27 06:44] LABS: Abs Immature Grans 0.04 10^3/uL (0.0-0.06); HCT 43.4 % (36.0-46.0); HGB 14.0 g/dL (11.2-15.7); Immature Grans % 0.5 %; MCH 30.2 pg (27.0-33.0); MCHC 32.3 % (32.0-36.0); MCV 94 fL (80-95); MPV 7.9 fL (8.0-11.0); Platelet Count 439 10^3/uL (130-400); RBC 4.64 10^6/uL (3.93-5.22); RDW 12.1 % (11.7-14.6); RDW-SD 41.6 fL; WBC 8.36 10^3/uL (4.4-10.8)
[2025-04-27 07:08] LABS: ALT 26 U/L (14-59); AST 17 U/L (15-37); Albumin 2.7 g/dL (3.4-5.0); Alkaline Phosphatase 75 U/L (46-116); Anion Gap 6.2 mmol/L (3-11); BUN 14 mg/dL (7-18); Bilirubin, Total 0.2 mg/dL (0.2-1.0); CO2 30.8 mmol/L (21.0-32.0); Calcium 8.7 mg/dL (8.5-10.1); Chloride 104 mmol/L (98-107); Estimated GFR 81.35 (mL/min/1.73m2); Glucose 75 mg/dL (74-106); Sodium 141 mmol/L (136-145); Total Protein 7.6 g/dL (6.4-8.2)
[2025-04-27 07:14] LABS: Potassium 4.4 mmol/L (3.5-5.1)
[2025-04-27] MEDS: Enoxaparin 40 MG/0.4 ML SYR SC (07:40)
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
[2025-04-27 08:44] LABS: Cannabinoids THC Negative (Negative); METHADONE URINE SCREEN Negative (Negative)
--- NOTE | 2025-04-27 10:02 | W.PM.PROGNOT ---
Assessment and Plan Assessment and plan (1) Cellulitis: Status: Acute Assessment and plan: - Continue with the cefepime that was started in the ED. Have placed a consult to general surgery for evaluation of possible deep incision and drainage. There is concern about gram-negative bacterial infection. Patient does not appear to be immunocompromised at least the date of. Results: X-rays of right humerus and tib-fib show evidence of soft tissue infection and likely abscess on tib-fib, I was asked to order a CT extremity on right, CT extremity shows evidence of gas in tissue, this is I suspect from the incision and drainage there is no crepitus on the leg (2) Polydrug abuse, continuous: Status: Acute Assessment and plan: Patient endorses recent cocaine use unrelated to urine drug screen for completeness (3) Hepatitis C: Status: Chronic Assessment and plan: Will need follow-up in the outpatient setting. She will be on Lovenox for DVT prophylaxis Objective Last Vital Signs Temp 37.0 C 04/27/25 01:26 Pulse 62 04/27/25 07:48 Resp 18 04/27/25 01:26 BP 115/73 04/27/25 07:48 Pulse Ox 98 04/27/25 07:48 Laboratory Results - last 24 hr 04/26/25 04/27/25 04/27/25 19:13 03:00 05:38 WBC 11.36 H 8.36 RBC 4.27 4.64 Hgb 13.0 14.0 Hct 39.5 43.4 MCV 93 94 MCH 30.4 30.2 MCHC 32.9 32.3 RDW 11.9 12.1 Plt Count 400 439 H MPV 7.8 L 7.9 L Immature Gran % 0.4 0.5 Neutrophils % 71.7 60.2 Lymphocytes % 20.5 29.1 Monocytes % 5.9 7.9 Eosinophils % 1.0 1.6 Basophils % 0.5 0.7 Nucleated RBC % 0.0 0.0 Absolute Neutrophils 8.15 H 5.04 Absolute Lymphocytes 2.33 2.43 Absolute Monocytes 0.67 0.66 Absolute Eosinophils 0.11 0.13 Absolute Basophils 0.06 0.06 VBG Lactate 1.2 Sodium 142 141 Potassium 3.4 L 4.4 D Chloride 106 104 Carbon Dioxide 27.2 30.8 Anion Gap 8.8 6.2 BUN 15 14 Creatinine 0.8 0.9 Est GFR (CKD-EPI 2020) 93.70 81.35 Glucose 105 75 Calcium 8.4 L 8.7 Total Bilirubin 0.2 0.2 AST 18 17 ALT 27 26 Alkaline Phosphatase 69 75 C-Reactive Protein 1.59 H Total Protein 7.0 7.6 Albumin 2.5 L 2.7 L Urine Opiates Screen Positive A Urine Methadone Screen Negative Ur Barbiturates Screen Negative Ur Tricyclics Screen Negative Ur Amphetamines Screen Negative U Benzodiazepines Scrn Negative Urine Cocaine Screen Positive A Ur THC Screen Negative PAWSS Have you Been Recently Intoxicated or Drunk Within the Last 30 days?: No Have you Ever Experienced Previous Episodes of Alcohol Withdrawal?: Yes Have you ever Experienced Withdrawal Seizures?: No Have you ever Experienced Delirium Tremens(DT)s?: No Have you ever undergone Alcohol Rehabilitation Treatment (i.e, inpt ot outpatient treatment programs)?: Yes Have you ever Experienced Blackouts?: Yes Have you ever Combined Alcohol with other Downers within the last 90 days?: No Have you ever Combined Alcohol with any other Substance of Abuse during the last 90 days?: No Positive Blood Alcohol level on Presentation? [PCS.BAL]: No Evidence of Increased Autonomic Activity (i.e. HR>120, tremor, sweating, agitation, nausea)?: No Result: 3
--- NOTE | 2025-04-27 14:31 | PGE_ITS ---
Date of Service Date of service: 04/27/25 Time of Service: 14:31 Assessment and Plan Assessment and plan (1) Cellulitis: Status: Acute Assessment and plan: Improving s/p I&D by surgery and with cefepime. Concern for GNR, pseudomonas? Nothing on gram stain. Continue cefepime as it does appear to be responding. This developed despite dalbivancin, so though I would typically add MRSA coverage in patient with IVDU, given she is getting better and is covered by dalbivancin, will not add another agent. (2) Polydrug abuse, continuous: Status: Acute Assessment and plan: Ongoing opioid, xylazine, cocaine use. She was more stable when on methadone. She declines buprenorphine. She feels methadone also treats her chronic pain. She is having some pain in her leg and back and mild withdrawal symptoms. Will start methadone at 30mg/day, split dose for pain. She has appt 04/29 at [facility] for intake. (3) Hepatitis C: Status: Chronic Assessment and plan: Will need follow-up in the outpatient setting. She will be on Lovenox for DVT prophylaxis Subjective Subjective Patient reports: tolerating a regular diet and voiding w/o difficulty; denies nausea, vomiting, shortness of breath or fever Interval history since last seen: Leg infection still hurts, but she feels like she is getting a litte better after it was drained and started on antibiotics. Her arm is also carton forming machine tender but less hot/red. She confirms she has been injecting fentanyl likely with xylazine. She was doing well at [facility] on methadone for years, which also helped her chronic pain. She was also on her feet a lot beign homeless which she thinks made the leg infection worse. She is interested in going back. Exam Narrative Exam Narrative: GEN: A&O, unformfortable, slightly anxious, but NAD Cardiovascular-no murmur rubs or gallops regular rate and rhythm Pulm-clear to auscultation bilaterally with good air exchange Abdomen-soft nontender nondistended bowel sounds active Musculoskeletal-right upper extremity valuation shows swelling, induration, and erythema approximately 3 x 4 cm on the right bicep area. Patient also has a 3 x 8 cm area of redness in front of the right anterior calf, now with packing in incision centrally. Redness does not extend to lines drawn. Dorsalis pedis posterior tibial pulse easily palpable radial pulse palpable Objective Last Vital Signs Temp 37.0 C 04/27/25 01:26 Pulse 62 04/27/25 07:48 Resp 18 04/27/25 01:26 BP 115/73 04/27/25 07:48 Pulse Ox 98 04/27/25 07:48 Laboratory Results - last 24 hr 04/26/25 04/27/25 04/27/25 19:13 03:00 05:38 WBC 11.36 H 8.36 RBC 4.27 4.64 Hgb 13.0 14.0 Hct 39.5 43.4 MCV 93 94 MCH 30.4 30.2 MCHC 32.9 32.3 RDW 11.9 12.1 Plt Count 400 439 H MPV 7.8 L 7.9 L Immature Gran % 0.4 0.5 Neutrophils % 71.7 60.2 Lymphocytes % 20.5 29.1 Monocytes % 5.9 7.9 Eosinophils % 1.0 1.6 Basophils % 0.5 0.7 Nucleated RBC % 0.0 0.0 Absolute Neutrophils 8.15 H 5.04 Absolute Lymphocytes 2.33 2.43 Absolute Monocytes 0.67 0.66 Absolute Eosinophils 0.11 0.13 Absolute Basophils 0.06 0.06 VBG Lactate 1.2 Sodium 142 141 Potassium 3.4 L 4.4 D Chloride 106 104 Carbon Dioxide 27.2 30.8 Anion Gap 8.8 6.2 BUN 15 14 Creatinine 0.8 0.9 Est GFR (CKD-EPI 2020) 93.70 81.35 Glucose 105 75 Calcium 8.4 L 8.7 Total Bilirubin 0.2 0.2 AST 18 17 ALT 27 26 Alkaline Phosphatase 69 75 C-Reactive Protein 1.59 H Total Protein 7.0 7.6 Albumin 2.5 L 2.7 L Urine Opiates Screen Positive A Urine Methadone Screen Negative Ur Barbiturates Screen Negative Ur Tricyclics Screen Negative Ur Amphetamines Screen Negative U Benzodiazepines Scrn Negative Urine Cocaine Screen Positive A Ur THC Screen Negative PAWSS Have you Been Recently Intoxicated or Drunk Within the Last 30 days?: No Have you Ever Experienced Previous Episodes of Alcohol Withdrawal?: Yes Have you ever Experienced Withdrawal Seizures?: No Have you ever Experienced Delirium Tremens(DT)s?: No Have you ever undergone Alcohol Rehabilitation Treatment (i.e, inpt ot outpatient treatment programs)?: Yes Have you ever Experienced Blackouts?: Yes Have you ever Combined Alcohol with other Downers within the last 90 days?: No Have you ever Combined Alcohol with any other Substance of Abuse during the last 90 days?: No Positive Blood Alcohol level on Presentation? [PCS.BAL]: No Evidence of Increased Autonomic Activity (i.e. HR>120, tremor, sweating, agitation, nausea)?: No Result: 3 Time Spent with Patient Time Spent with Patient: 35-49 minutes Time was spent: preparing to see the patient(eg.review tests), obtaining and/or reviewing separately otained hiistory, ordering medications,tests, procedures, referring, communicating with other health home health care coordinator, indepentently interpreting results, counseling the patient and care coordination
[2025-04-27] MEDS: Methadone 10 MG TAB PO ×2 (15:23→21:03)
[2025-04-27] MEDS: Nicotine 14 MG/24 HR PATCH TD (21:03)
[2025-04-28] MEDS: CEFEPIME 2 GM in Normal Saline 100 ML IVPB ×2 (05:29→17:44)
[2025-04-28] MEDS: Methadone 10 MG TAB PO (05:31)
[2025-04-28] MEDS: Enoxaparin 40 MG/0.4 ML SYR SC (07:33)
[2025-04-28] MEDS: Nicotine 14 MG/24 HR PATCH TD (07:33)
[2025-04-28] MEDS: Normal Saline Flush 10 ML SYR IVP (07:34)
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
[2025-04-28 10:34] VITALS: BP 109/75; PULSE 73; TEMP 36.8
[2025-04-28] MEDS: Methadone 10 MG TAB 15 MG PO ×2 (14:15→21:35)
[2025-04-28 15:45] VITALS: BP 107/80; PULSE 81; TEMP 36.7; O2SAT 99
--- NOTE | 2025-04-28 15:51 | PHA.REVIEW2 ---
Pharmacy Admission Review Admission Clinical Review Admission Pharmacy Review: Cellulitis (Acute) Polydrug abuse, continuous (Acute 12/26/14) No Known Allergies Allergy (Unverified 04/21/25 12:50) Resuscitation Status Full Code Height 5 ft 4 in Weight 70.5 kg Pharmacy Admission Review Renal Dosing Renal Dosing: BUN 14 mg/dL (7-18) 04/27/25 05:38 Creatinine 0.9 mg/dL (0.55-1.02) 04/27/25 05:38 Medications needing adjustments: Reviewed List of meds needing interventions: CRCL=77; CURRENT MEDS OKAY Anticoagulation Anticoagulation: Hgb 14.0 g/dL (11.2-15.7) 04/27/25 05:38 Hct 43.4 % (36.0-46.0) 04/27/25 05:38 Plt Count 439 10^3/uL (130-400) H 04/27/25 05:38 Creatinine 0.9 mg/dL (0.55-1.02) 04/27/25 05:38 DVT Prophylaxis: Reviewed Medications: Enoxaparin Opiate Usage Evaluate Pain Scale/Pains Meds: Reviewed (on methadone for pain) Scheduled Bowel Reg ordered if on Opiates?: No Relevant Labs Relevant Labs: Sodium 141 mmol/L (136-145) 04/27/25 05:38 Potassium 4.4 mmol/L (3.5-5.1) D 04/27/25 05:38 Chloride 104 mmol/L (98-107) 04/27/25 05:38 C-Reactive Protein 1.59 mg/dL (<or=0.5) H 04/26/25 19:13 Electrolytes, C-Reactive P, ESR: Reviewed DM Control DM Control: Reviewed Cardiac Review Cardiac Review: reviewed bp and hr. BP, HR, EF%: Reviewed QTc Review List meds needing interventions: methadone. no recent EKG. Will recommend checking one. IV to PO Switch IV Medications: Reviewed Home Meds Home Med List reviewed: Reviewed Current Meds Current Medication Order Review: Reviewed Pharmacy Antibiotic Review Relevant Labs: Recommended to increase cefepime to 2g q8h from q12h for potential pseudomonas coverage. Pt received dose of dalbavancin on 04/24 prior to discharge. Pharmacy Antibiotic Activity: Abx regimen adjustment
--- NOTE | 2025-04-28 18:20 | W.PM.PROGNOT ---
Date of Service Date of service: 04/28/25 Time of Service: 18:20 Assessment and Plan Assessment and plan (1) Cellulitis: Status: Acute Assessment and plan: Improving s/p I&D by surgery and with cefepime Case discussed with ID from [facility]. So far, blood and wound cultures negative or even gram stain. Abscess apparently stable Continue cefepime, if still no growth of GNR in am, discharge with 4 more days of tmp/smx Dalbavancin still in the system as well, covers GPC well She will need f/u to replace packing with surgery clinic in 2-3 days. (2) Polydrug abuse, continuous: Status: Acute Assessment and plan: Ongoing opioid, xylazine, cocaine use. She was more stable when on methadone. She declines buprenorphine. She feels methadone also treats her chronic pain. She was having some pain in her leg and back and mild withdrawal symptoms. Doing better on methadone at 30mg/day, increase to 45mg, split dose for pain. She has appt 04/29 at [facility] for intake, discharge early AM for intake. (3) Hepatitis C: Status: Chronic Assessment and plan: Will need follow-up in the outpatient setting. F/u with PCP. She will be on Lovenox for DVT prophylaxis Subjective Subjective Patient reports: no new complaints, feels better and tolerating a regular diet; denies voiding w/o difficulty, diarrhea, vomiting, shortness of breath or fever Interval history since last seen: Feeling much better. More comfortable on methadone. She is motivated to stop using. Pain in leg not as bad. Arm feel better too. Exam Narrative Exam Narrative: GEN: A&O, unformfortable, slightly anxious, but NAD Pupils 4mm olive room light Cardiovascular-no murmur rubs or gallops regular rate and rhythm Pulm-clear to auscultation bilaterally with good air exchange Abdomen-soft nontender nondistended bowel sounds active Musculoskeletal-right upper extremity valuation much impr induration, no erythema. Patient also has a 3 x 8 cm area of redness in front of the right anterior calf, now with packing in incision centrally. no edeam Objective Last Vital Signs Temp 36.7 C 04/28/25 15:45 Pulse 81 04/28/25 15:45 Resp 18 04/27/25 15:28 BP 107/80 04/28/25 15:45 Pulse Ox 99 04/28/25 15:45 PAWSS Have you Been Recently Intoxicated or Drunk Within the Last 30 days?: No Have you Ever Experienced Previous Episodes of Alcohol Withdrawal?: Yes Have you ever Experienced Withdrawal Seizures?: No Have you ever Experienced Delirium Tremens(DT)s?: No Have you ever undergone Alcohol Rehabilitation Treatment (i.e, inpt ot outpatient treatment programs)?: Yes Have you ever Experienced Blackouts?: Yes Have you ever Combined Alcohol with other Downers within the last 90 days?: No Have you ever Combined Alcohol with any other Substance of Abuse during the last 90 days?: No Positive Blood Alcohol level on Presentation? [PCS.BAL]: No Evidence of Increased Autonomic Activity (i.e. HR>120, tremor, sweating, agitation, nausea)?: No Result: 3 Time Spent with Patient Time Spent with Patient: 35-49 minutes Time was spent: preparing to see the patient(eg.review tests), obtaining and/or reviewing separately otained hiistory, ordering medications,tests, procedures, referring, communicating with other health ambulatory care nurse, indepentently interpreting results, counseling the patient and care coordination
[2025-04-28 21:46] VITALS: BP 116/72; PULSE 80
[2025-04-29] MEDS: CEFEPIME 2 GM in Normal Saline 100 ML IVPB (02:38)
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
[2025-04-29] MEDS: Methadone 10 MG TAB 15 MG PO (06:00)
[2025-04-29] MEDS: Normal Saline Flush 10 ML SYR IVP (06:08)
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
== END 2025-04-29 06:47 | disposition home or self-care (01) | DRG 603 ==
LOC: ER 17:03 → ICU 04-27 01:14
PROVIDERS: Admitting Provider Hospitalist; Emergency Provider Physician Assistant; PCP Family Medicine; Responsible Provider Family Medicine; Visit Provider Hospitalist
DX: L02.415 Cutaneous abscess of right lower limb (principal); Z59.02 Unsheltered homelessness; F11.20 Opioid dependence, uncomplicated; F19.20 Other psychoactive substance dependence, uncomplicated; F32.A Depression, unspecified; L03.115 Cellulitis of right lower limb; F43.10 Post-traumatic stress disorder, unspecified; K21.9 Gastro-esophageal reflux disease without esophagitis; F10.20 Alcohol dependence, uncomplicated; B18.2 Chronic viral hepatitis C; F17.210 Nicotine dependence, cigarettes, uncomplicated; Z59.41 Food insecurity; Z59.82 Transportation insecurity; Z91.419 Personal history of unspecified adult abuse
CPT/HCPCS: 00123; 10061; 80053; 80307; 81025; 87040; 96365; 99285; J1650; 73060; 73590; 73701; 83605; 85025; 86140; 87070; 87205; 99222; 99232; 99238; J0692; J2270; J3490

== ENCOUNTER 2025-05-05 16:14 | Emergency (ER) | payer MEDICAID, SELFPAY ==
[2025-05-05 16:16] VITALS: BP 136/90; PULSE 67; RESP 20; TEMP 36.7; O2SAT 98
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
[2025-05-05] MEDS: Mupirocin 2% Oint. 22 GM TUBE TP (17:02)
== END 2025-05-05 17:23 | disposition home or self-care (01) ==
PROVIDERS: Emergency Provider Physician Assistant
DX: L02.415 Cutaneous abscess of right lower limb (principal); Z59.00 Homelessness unspecified; Z59.41 Food insecurity; Z59.82 Transportation insecurity; Z59.87 Material hardship due to limited financial resources, not elsewhere classified; Z59.89 Other problems related to housing and economic circumstances; Z60.8 Other problems related to social environment
CPT/HCPCS: 99283 ×2